=== PATIENT | female | born 1975 | race African-American/Black ===

== ENCOUNTER 2019-01-14 14:27 | Inpatient (IN) | payer OTHER ==
[2019-01-14 16:38] VITALS: BMI 26.9
--- NOTE | 2019-01-14 18:16 | HP ---
COWS - Scale Resting Pulse: 1= [place] 81-100 Sweatin=Flushed/Facial Moisture Restless Observation: 1= Difficult to Sit Still Pupil Size: 1= Pupils >than Normal Bone or Joint Aches: 1= Mild Discomfort Runny Nose/ Eye Tearin= Nasal Congestion GI Upset > 30mins: 2= Nausea/Diarrhea Tremor Observation: 2= Slight Tremor Visible Yawning Observation: 1= 1-2x During Session Anxiety or Irritability: 2=Irritable/Anxious Goose Flesh Skin: 3=Piloerection COWS Score: 17 CIWA Score Nausea/Vomitin Muscle Tremors: 3 Anxiety: 3 Agitation: 2 Paroxysmal Sweats: 2 Orientation: 0-Oriented Tacttile Disturbances: 0-None Auditory Disturbances: 0-None Visual Disturbances: 1-Very Mild Sensitivity Headache: 0-None Present CIWA-Ar Total Score: 13 - Admission Criteria OASAS Guidelines: Admission for Medically Managed Detox: Requires at least one of the followin. CIWA greater than 12 2. Seizures within the past 24 hours 3. Delirium tremens within the past 24 hours 4. Hallucinations within the past 24 hours 5. Acute intervention needed for co occurring medical disorder 6. Acute intervention needed for co occurring psychiatric disorder 7. Severe withdrawal that cannot be handled at a lower level of care (continued vomiting, continued diarrhea, abnormal vital signs) requiring intravenous medication and/or fluids 8. 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 Her last treatment was at [facility] in [place] a year ago. She has seizure disorder, she reports last seizure activity 3 years ago, she also reports frequent alcohol related black outs. Exam Limitations: No Limitations - Ebola screening Have you traveled outside of the country in the last 21 days: No (N) Have you had contact with anyone from an Ebola affected area: No Have you been sick,other than usual withdrawal symptoms: No Do you have a fever: No - Review of Systems Constitutional: Chills, Loss of Appetite, Changes in sleep, Weight Stable EENT: reports: No Symptoms Reported Respiratory: reports: No Symptoms reported Cardiac: reports: No Symptoms Reported GI: reports: Nausea, Poor Appetite : reports: No Symptoms Reported Musculoskeletal: reports: Joint Pain, Muscle Pain, Muscle Weakness Integumentary: reports: No Symptoms Reported Neuro: reports: No Symptoms reported Endocrine: reports: No Symptoms Reported Hematology: reports: No Symptoms Reported Psychiatric: reports: Anxious, other (Schizo affective disorder) Other Systems: Reviewed and Negative Patient History - Patient Medical History Hx Anemia: No Hx Asthma: No Hx Chronic Obstructive Pulmonary Disease (COPD): No Hx Cancer: No Hx Cardiac Disorders: No Hx Congestive Heart Failure: No Hx Hypertension: Yes Hx Hypercholesterolemia: No Hx Pacemaker: No HX Cerebrovascular Accident: No Hx Seizures: Yes (none x 3 years) Hx Dementia: No Hx Diabetes: No Hx Gastrointestinal Disorders: No Hx Liver Disease: No Hx Genitourinary Disorders: No Hx Sexually Transmitted Disorders: No Hx Renal Disease (ESRD): No Hx Thyroid Disease: No Hx Human Immunodeficiency Virus (HIV): No Hx Hepatitis C: No Hx Depression: No Hx Suicide Attempt: No ( ) Hx Bipolar Disorder: Yes Hx Schizophrenia: No - Patient Surgical History Past Surgical History: Yes Hx Section: Yes (x 4) Anesthesia Reaction: No - PPD History Previous Implant?: Yes Documented Results: Negative w/proof Implanted On Prior R Admission?: Yes Date: 06/04/13 PPD to be Administered?: Yes - Reproductive History Patient is a Female of Child Bearing Age (11 -55 yrs old): Yes Last Menstrual Period: 05/18/13 Patient : No - Smoking Cessation Smoking history: Current every day smoker Have you smoked in the past 12 months: Yes Aproximately how many cigarettes per day: 10 Hx Chewing Tobacco Use: No Initiated information on smoking cessation: Yes 'Breaking Loose' booklet given: 01/14/19 - Substances abused Alcohol Substance route: Oral Frequency: Daily Amount used: 7 CANS BEER Age of first use: 10 Date of last use: 01/14/19 Heroin Other (specify): SNIFF Frequency: Daily Amount used: 5 BAGS Age of first use: 13 Date of last use: 01/14/19 Cocaine Substance route: Smoking Frequency: Daily Amount used: 300$ Age of first use: 16 Date of last use: 01/14/19 Family Disease History - Family Disease History Family Disease History: Diabetes: Grandparent, Father, Mother, Heart Disease: Father Admission Physical Exam [facility] - Vital Signs Vital Signs: Vital Signs - 24 hr 01/14/19 01/14/19 16:28 17:21 Temperature 98.6 F 98.6 F Pulse Rate 97 H 97 H Respiratory 18 18 Rate Blood Pressure 198/118 H 198/118 H - Physical General Appearance: Yes: No Apparent Distress HEENTM: Yes: Hearing grossly Normal, Normocephalic, Normal Voice, LITZY, Nasal Congestion, Other (missing some teeth) Respiratory: Yes: Chest Non-Tender, Lungs Clear, Normal Breath Sounds, No Respiratory Distress, No Accessory Muscle Use Neck: Yes: No masses,lesions,Nodules, Supple Breast: Yes: Breast Exam Deferred Cardiology: Yes: Regular Rhythm, Regular Rate, S1, S2 Abdominal: Yes: Normal Bowel Sounds, Non Tender, Flat Genitourinary: Yes: Within Normal Limits Back: Yes: Normal Inspection Musculoskeletal: Yes: full range of Motion, Muscle Pain Extremities: Yes: Normal Capillary Refill, Non-Tender, Tremors Neurological: Yes: busboy II-XII NML intact, Fully Oriented, Alert, Normal Mood/ Affect, Normal Response Integumentary: Yes: Normal Color, Clammy Lymphatic: Yes: Within Normal Limits - Diagnostic (1) Uncomplicated alcohol withdrawal Current Visit: Yes Status: Acute (2) Nicotine dependence Current Visit: Yes Status: Acute Qualifiers: Nicotine product type: cigarettes Substance use status: uncomplicated Qualified Code(s): F17.210 - Nicotine dependence, cigarettes, uncomplicated (3) Essential hypertension Current Visit: Yes Status: Chronic (4) Opiate dependence Current Visit: Yes Status: Acute Qualifiers: Substance use status: uncomplicated Qualified Code(s): F11.20 - Opioid dependence, uncomplicated (5) Seizure disorder Current Visit: No Status: Chronic Cleared for Admission [facility] - Detox or Rehab [facility] Level of Care: Medically Managed Detox Regimen/Protocol: Methadone/Librium Claeared for Rehab Admission: No Breathalyzer - Breathalyzer Breathalyzer: 0 Urine Drug Screen - Test Device Lot number: [id number] Expiration date: 10/13/20 - Control Is test valid?: Yes - Results Drug screen NEGATIVE: No Urine drug screen results: THC-Marijuana, MARTHA-Cocaine, BZO-Benzodiazepines Inpatient Rehab Admission - Rehab Decision to Admit Inpatient rehab admission?: No
[2019-01-14] MEDS ORDERED: MAGNESIUM HYDROX 2400MG/30ML ORAL SUSPENSION 30 ML CUP PO PRN (18:22)
[2019-01-14] MEDS ORDERED: NALOXONE HCL 0.4 MG/ML VIAL IVPUSH PRN (18:22)
[2019-01-14] MEDS ORDERED: MENTHOL/PHENOL 1 EACH UD MM PRN (18:22)
[2019-01-14] MEDS ORDERED: QUEtiapine FUMARATE 50 MG TABLET PO PRN (18:22)
[2019-01-14] MEDS ORDERED: hydrOXYzine PAMOATE 50 MG CAPSULE (FP) PO PRN (18:22)
[2019-01-14] MEDS ORDERED: ONDANSETRON *ODT* 4 MG TABLET SL PRN (18:22)
[2019-01-14] MEDS ORDERED: BISMUTH SUBSALICYLATE 524 MG/30 ML UD PO PRN (18:22)
[2019-01-14] MEDS ORDERED: ACETAMINOPHEN 325 MG TABLET (FP) PO PRN ×2 (18:22)
[2019-01-14] MEDS ORDERED: NICOTINE POLACRILEX 2 MG GUM BUC PRN (18:22)
[2019-01-14] MEDS ORDERED: IBUPROFEN 400 MG TABLET (FP) PO PRN ×2 (18:22)
[2019-01-14] MEDS ORDERED: MAG HYDROX/AL HYDROX/SIMETH 30 ML UNIT-DOSE CUP PO PRN (18:22)
[2019-01-14] MEDS ORDERED: METHOCARBAMOL 500 MG TABLET PO PRN (18:22)
[2019-01-14] MEDS ORDERED: METHADONE HCL 10 MG TABLET (FOR DETOX USE ONLY) PO ONE ×2 (18:22→23:00)
[2019-01-14] MEDS ORDERED: P-EPHED 60MG/TRIPROLIDI 2.5MG TABLET PO PRN (18:22)
[2019-01-14] MEDS ORDERED: MAGNESIUM CITRATE 300 ML BOTTLE PO PRN (18:22)
[2019-01-14] MEDS ORDERED: chlordiazePOXIDE HCL 10 MG CAPSULE PO PRN (18:22)
[2019-01-14] MEDS ORDERED: ALBUTEROL SO4 8 GM HFA INHALER IH PRN (18:25)
[2019-01-14] MEDS: HYDROCHLOROTHIAZIDE 25 MG TABLET (FP) PO SCH (19:08)
[2019-01-14] MEDS: cloNIDine HCL 0.1 MG TABLET PO PRN (19:09)
[2019-01-14] MEDS: THIAMINE HCL 100 MG TABLET (FP) PO SCH (22:17)
[2019-01-14] MEDS: chlordiazePOXIDE HCL 25 MG CAPSULE PO SCH (22:17)
[2019-01-14] MEDS: MELATONIN 5 MG TABLETS PO PRN (22:43)
[2019-01-15] MEDS: chlordiazePOXIDE HCL 25 MG CAPSULE PO SCH ×2 (05:30→13:28)
[2019-01-15] MEDS ORDERED: METHADONE HCL 5 MG TABLET (FOR DETOX USE ONLY) PO ONE (10:00)
[2019-01-15] MEDS: PRENATAL VITAMINS W/ FOLIC ACID TABLET (FP) PO SCH (10:26)
[2019-01-15] MEDS: PHENYTOIN NA EXTENDED 100 MG CAPSULE (FP) PO SCH (10:26)
[2019-01-15] MEDS: HYDROCHLOROTHIAZIDE 25 MG TABLET (FP) PO SCH (10:26)
[2019-01-15 10:51] LABS: HEMATOCRIT 39.1 % (32.4-45.2); HEMOGLOBIN 12.9 GM/dL (10.7-15.3); MCHC 33.1 g/dl (32.0-36.0); MEAN CELL VOLUME 90.7 fl (80-96); MEAN PLT VOLUME 8.8 fl (7.5-11.1); PLATELET COUNT 291 K/MM3 (134-434); RBC 4.31 M/mm3 (3.60-5.2); WHITE BLOOD COUNT 8.2 K/mm3 (4.0-10.0)
[2019-01-15 11:12] LABS: ALBUMIN 3.8 g/dl (3.4-5.0); BILIRUBIN,TOTAL 0.4 mg/dL (0.2-1); CREATININE 0.7 mg/dL (0.55-1.3); TOT PROT 6.9 g/dl (6.4-8.2)
--- NOTE | 2019-01-15 15:40 | EKG ---
Test Reason : Blood Pressure : / mmHG Vent. Rate : 073 BPM Atrial Rate : 073 BPM P-R Int : 178 ms QRS Dur : 090 ms QT Int : 468 ms P-R-T Axes : 073 077 077 degrees QTc Int : 515 ms NORMAL SINUS RHYTHM POSSIBLE LEFT ATRIAL ENLARGEMENT PROLONGED QT ABNORMAL ECG NO PREVIOUS ECGS AVAILABLE Confirmed by BROOKS GONZALEZ MD ([id number]) on 01/15/2019 3:40:15 PM Referred By: JUMA KIM Confirmed By:BROOKS GONZALEZ MD
--- NOTE | 2019-01-15 16:24 | PN ---
[facility] CIWA - CIWA Score Nausea/Vomitin-Mild Nausea/No Vomiting Muscle Tremors: 3 Anxiety: 1-Mildly Anxious Agitation: 1-Slight > Activity Paroxysmal Sweats: 3 Orientation: 0-Oriented Tacttile Disturbances: 0-None Auditory Disturbances: 0-None Visual Disturbances: 0-None Headache: 0-None Present CIWA-Ar Total Score: 9 S COWS - Scale Resting Pulse: 0= [place] 80 or Below Sweatin=Flushed/Facial Moisture Restless Observation: 0= Sits Still Pupil Size: 0= Normal to Room Light Bone or Joint Aches: 1= Mild Discomfort Runny Nose/ Eye Tearin= None GI Upset > 30mins: 2= Nausea/Diarrhea Tremor Observation of Outstretched Hands: 2= Slight Tremor Visible Yawning Observation: 0= None Anxiety or Irritability: 1=Feels Anxious/Irritable Goose Flesh Skin: 0=Smooth Skin COWS Score: 8 [facility] Progress Note (SOAP) Subjective: SWEATS NAUSEA Objective: 01/15/19 16:21 A & OX 3 IN BED LYING, NOT IN ACUTE DISTRESS Vital Signs Temperature 98.1 F 01/15/19 14:13 Pulse Rate 73 01/15/19 14:13 Respiratory Rate 20 01/15/19 14:13 Blood Pressure 153/90 01/15/19 14:13 O2 Sat by Pulse Oximetry (%) Laboratory Last Values WBC 8.2 K/mm3 (4.0-10.0) 01/15/19 07:40 RBC 4.31 M/mm3 (3.60-5.2) 01/15/19 07:40 Hgb 12.9 GM/dL (10.7-15.3) 01/15/19 07:40 Hct 39.1 % (32.4-45.2) 01/15/19 07:40 MCV 90.7 fl (80-96) 01/15/19 07:40 MCH 30.0 pg (25.7-33.7) 01/15/19 07:40 MCHC 33.1 g/dl (32.0-36.0) 01/15/19 07:40 RDW 14.0 % (11.6-15.6) D 01/15/19 07:40 Plt Count 291 K/MM3 (134-434) 01/15/19 07:40 MPV 8.8 fl (7.5-11.1) 01/15/19 07:40 Sodium 141 mmol/L (136-145) 01/15/19 07:40 Potassium 4.0 mmol/L (3.5-5.1) 01/15/19 07:40 Chloride 106 mmol/L (98-107) 01/15/19 07:40 Carbon Dioxide 28 mmol/L (21-32) 01/15/19 07:40 Anion Gap 8 MMOL/L (8-16) 01/15/19 07:40 BUN 15 mg/dL (7-18) 01/15/19 07:40 Creatinine 0.7 mg/dL (0.55-1.3) 01/15/19 07:40 Est GFR (CKD-EPI)AfAm 121.27 01/15/19 07:40 Est GFR (CKD-EPI)NonAf 104.64 01/15/19 07:40 Random Glucose 85 mg/dL (74-106) 01/15/19 07:40 Calcium 9.0 mg/dL (8.5-10.1) 01/15/19 07:40 Total Bilirubin 0.4 mg/dL (0.2-1) 01/15/19 07:40 AST 16 U/L (15-37) 01/15/19 07:40 ALT 24 U/L (13-61) 01/15/19 07:40 Alkaline Phosphatase 106 U/L (45-117) 01/15/19 07:40 Total Protein 6.9 g/dl (6.4-8.2) 01/15/19 07:40 Albumin 3.8 g/dl (3.4-5.0) 01/15/19 07:40 POC Urine HCG, Qual Negative 01/14/19 19:35 RPR Titer Nonreactive (NONREACTIVE) 01/15/19 07:40 LABS NOTED Assessment: 01/15/19 16:23 WITHDRAWAL SX Plan: CONTINUE DETOX INCREASE HYDRATION
[2019-01-15] MEDS: cloNIDine HCL 0.1 MG TABLET PO PRN (17:14)
[2019-01-15] MEDS: clonazePAM 0.5 MG TABLET PO PRN (17:14)
[2019-01-15] MEDS: chlordiazePOXIDE 5 MG CAPSULE PO SCH (21:17)
[2019-01-15] MEDS: THIAMINE HCL 100 MG TABLET (FP) PO SCH (22:17)
[2019-01-15] MEDS: MELATONIN 5 MG TABLETS PO PRN (22:17)
[2019-01-16] MEDS: chlordiazePOXIDE 5 MG CAPSULE PO SCH ×2 (05:34→13:56)
[2019-01-16] MEDS ORDERED: METHADONE HCL 10 MG TABLET (FOR DETOX USE ONLY) PO ONE (10:00)
[2019-01-16] MEDS: PHENYTOIN NA EXTENDED 100 MG CAPSULE (FP) PO SCH (10:09)
[2019-01-16] MEDS: HYDROCHLOROTHIAZIDE 25 MG TABLET (FP) PO SCH (10:09)
[2019-01-16] MEDS: PRENATAL VITAMINS W/ FOLIC ACID TABLET (FP) PO SCH (10:10)
--- NOTE | 2019-01-16 11:43 | PN ---
[facility] CIWA - CIWA Score Nausea/Vomitin-Mild Nausea/No Vomiting Muscle Tremors: 2 Anxiety: 2 Agitation: 2 Paroxysmal Sweats: 1-Minimal Palms Moist Orientation: 0-Oriented Tacttile Disturbances: 0-None Auditory Disturbances: 0-None Visual Disturbances: 0-None Headache: 0-None Present CIWA-Ar Total Score: 8 [facility] COWS - Scale Resting Pulse: 0= [place] 80 or Below Sweatin= Chills/Flushing Restless Observation: 0= Sits Still Pupil Size: 0= Normal to Room Light Bone or Joint Aches: 1= Mild Discomfort Runny Nose/ Eye Tearin= Nasal Congestion GI Upset > 30mins: 1= Stomach Cramp Tremor Observation of Outstretched Hands: 1= Tremor [place], Not Seen Yawning Observation: 1= 1-2x During Session Anxiety or Irritability: 1=Feels Anxious/Irritable Goose Flesh Skin: 0=Smooth Skin COWS Score: 7 S Progress Note (SOAP) Subjective: long history of hypertension treated with enalapril 5 mg po daily order enalapril Objective: 01/16/19 11:56 Vital Signs Temperature 97.9 F 01/16/19 09:22 Pulse Rate 67 01/16/19 09:22 Respiratory Rate 18 01/16/19 09:22 Blood Pressure 165/97 01/16/19 09:22 O2 Sat by Pulse Oximetry (%) Laboratory Last Values WBC 8.2 K/mm3 (4.0-10.0) 01/15/19 07:40 RBC 4.31 M/mm3 (3.60-5.2) 01/15/19 07:40 Hgb 12.9 GM/dL (10.7-15.3) 01/15/19 07:40 Hct 39.1 % (32.4-45.2) 01/15/19 07:40 MCV 90.7 fl (80-96) 01/15/19 07:40 MCH 30.0 pg (25.7-33.7) 01/15/19 07:40 MCHC 33.1 g/dl (32.0-36.0) 01/15/19 07:40 RDW 14.0 % (11.6-15.6) D 01/15/19 07:40 Plt Count 291 K/MM3 (134-434) 01/15/19 07:40 MPV 8.8 fl (7.5-11.1) 01/15/19 07:40 Sodium 141 mmol/L (136-145) 01/15/19 07:40 Potassium 4.0 mmol/L (3.5-5.1) 01/15/19 07:40 Chloride 106 mmol/L (98-107) 01/15/19 07:40 Carbon Dioxide 28 mmol/L (21-32) 01/15/19 07:40 Anion Gap 8 MMOL/L (8-16) 01/15/19 07:40 BUN 15 mg/dL (7-18) 01/15/19 07:40 Creatinine 0.7 mg/dL (0.55-1.3) 01/15/19 07:40 Est GFR (CKD-EPI)AfAm 121.27 01/15/19 07:40 Est GFR (CKD-EPI)NonAf 104.64 01/15/19 07:40 Random Glucose 85 mg/dL (74-106) 01/15/19 07:40 Calcium 9.0 mg/dL (8.5-10.1) 01/15/19 07:40 Total Bilirubin 0.4 mg/dL (0.2-1) 01/15/19 07:40 AST 16 U/L (15-37) 01/15/19 07:40 ALT 24 U/L (13-61) 01/15/19 07:40 Alkaline Phosphatase 106 U/L (45-117) 01/15/19 07:40 Total Protein 6.9 g/dl (6.4-8.2) 01/15/19 07:40 Albumin 3.8 g/dl (3.4-5.0) 01/15/19 07:40 POC Urine HCG, Qual Negative 01/14/19 19:35 RPR Titer Nonreactive (NONREACTIVE) 01/15/19 07:40 lab noted Assessment: 01/16/19 11:58 alcohol and opiate withdrawal sx Plan: continue detox
[2019-01-16] MEDS ORDERED: cloNIDine HCL 0.1 MG TABLET PO PRN (12:29)
[2019-01-16] MEDS: ENALAPRIL MALEATE 5 MG TABLET (FP) PO SCH (13:56)
[2019-01-16] MEDS ORDERED: chlordiazePOXIDE HCL 10 MG CAPSULE PO PRN (21:00)
[2019-01-16] MEDS: THIAMINE HCL 100 MG TABLET (FP) PO SCH (22:19)
[2019-01-16] MEDS: clonazePAM 0.5 MG TABLET PO PRN (22:21)
[2019-01-16] MEDS: chlordiazePOXIDE HCL 10 MG CAPSULE PO SCH (22:36)
[2019-01-17] MEDS: chlordiazePOXIDE HCL 10 MG CAPSULE PO SCH ×2 (05:10→13:49)
[2019-01-17] MEDS ORDERED: METHADONE HCL 5 MG TABLET (FOR DETOX USE ONLY) PO ONE (06:00)
[2019-01-17 09:08] VITALS: TEMP 98.8
[2019-01-17] MEDS: PHENYTOIN NA EXTENDED 100 MG CAPSULE (FP) PO SCH (10:04)
[2019-01-17] MEDS: HYDROCHLOROTHIAZIDE 25 MG TABLET (FP) PO SCH (10:04)
[2019-01-17] MEDS: PRENATAL VITAMINS W/ FOLIC ACID TABLET (FP) PO SCH (10:04)
[2019-01-17] MEDS: ENALAPRIL MALEATE 5 MG TABLET (FP) PO SCH (10:04)
[2019-01-17 13:04] VITALS: BP 124/73; PULSE 78
--- NOTE | 2019-01-17 15:10 | DS ---
[facility] Detox Discharge Summary Admission Date: 01/14/19 Discharge Date: 01/17/19 - History Present History: Alcohol Dependence, Opioid Dependence Additional Comments: PATIENT GOING TO [facility] ([place]) FOR AFTERCARE. PATIENT WAS DISCHARGED FROM DETOX UNIT TO BE TAKEN OVER TO REHAB UNIT IN STABLE MEDICAL CONDITION. Pertinent Past History: Seizure Disorder, History of Blackouts (Related To Alcohol), HTN, Nicotine Dependence, History Of Bipolar Disorder. - Physical Exam Results Vital Signs: Vital Signs Temperature 98.8 F 01/17/19 13:04 Pulse Rate 78 01/17/19 13:04 Respiratory Rate 18 01/17/19 13:04 Blood Pressure 124/73 01/17/19 13:04 O2 Sat by Pulse Oximetry (%) Pertinent Admission Physical Exam Findings: WITHDRAWAL SYMPTOMS. Laboratory Tests 01/14/19 01/15/19 01/15/19 19:35 07:40 07:40 WBC 8.2 RBC 4.31 Hgb 12.9 Hct 39.1 MCV 90.7 MCH 30.0 MCHC 33.1 RDW 14.0 D Plt Count 291 MPV 8.8 Sodium 141 Potassium 4.0 Chloride 106 Carbon Dioxide 28 Anion Gap 8 BUN 15 Creatinine 0.7 Est GFR (CKD-EPI)AfAm 121.27 Est GFR (CKD-EPI)NonAf 104.64 Random Glucose 85 Calcium 9.0 Total Bilirubin 0.4 AST 16 ALT 24 Alkaline Phosphatase 106 Total Protein 6.9 Albumin 3.8 POC Urine HCG, Qual Negative Phenytoin RPR Titer 01/15/19 01/17/19 07:40 07:00 WBC RBC Hgb Hct MCV MCH MCHC RDW Plt Count MPV Sodium Potassium Chloride Carbon Dioxide Anion Gap BUN Creatinine Est GFR (CKD-EPI)AfAm Est GFR (CKD-EPI)NonAf Random Glucose Calcium Total Bilirubin AST ALT Alkaline Phosphatase Total Protein Albumin POC Urine HCG, Qual Phenytoin 4.3 L RPR Titer Nonreactive LABS NOTED. - Treatment Hospital Course: Detox Protocol Followed, Detoxed Safely, Responded well, Discharged Condition Good, Rehab Referral Accepted Patient has Accepted a Rehab Referral to: [facility] [place] - Medication Discharge Medications: Ambulatory Orders Albuterol Sulfate [Proair Hfa -] 1 - 2 inh PO QID PRN 06/02/13 Enalapril Maleate [Vasotec -] 5 mg PO DAILY 06/02/13 Hydrochlorothiazide [Hctz -] 25 mg PO DAILY 06/02/13 Phenytoin Na Extended [Dilantin -] 300 mg PO DAILY 06/02/13 Seroquel 50 mg PO HS 01/17/19 - Diagnosis (1) Nicotine dependence Status: Acute Qualifiers: Nicotine product type: cigarettes Substance use status: uncomplicated Qualified Code(s): F17.210 - Nicotine dependence, cigarettes, uncomplicated (2) Opiate dependence Status: Acute Qualifiers: Substance use status: uncomplicated Qualified Code(s): F11.20 - Opioid dependence, uncomplicated (3) Uncomplicated alcohol withdrawal Status: Acute (4) Essential hypertension Status: Chronic (5) Seizure disorder Status: Chronic - AMA Did Patient Leave Against Medical Advice: No
== END 2019-01-17 14:23 | disposition other institution (70) | DRG 773 ==
LOC: YASAS 14:27 → Y3N 18:38
PROVIDERS: ADMIT Surgery; ATTEND Surgery
PROC: HZ2ZZZZ Detoxification Services for Substance Abuse Treatment (ICD-10-PCS; principal; 2019-01-14)
DX: F10.230 Alcohol dependence with withdrawal, uncomplicated (principal); F11.23 Opioid dependence with withdrawal; F14.20 Cocaine dependence, uncomplicated; F13.20 Sedative, hypnotic or anxiolytic dependence, uncomplicated; F17.210 Nicotine dependence, cigarettes, uncomplicated; F31.9 Bipolar disorder, unspecified; I10 Essential (primary) hypertension; G40.909 Epilepsy, unspecified, not intractable, without status epilepticus; Z88.8 Allergy status to other drugs, medicaments and biological substances; Z59.0 Homelessness
CPT/HCPCS: 36415; 80053; 80185; 81025; 85027; 86593; 93005; 93010; J0735

== ENCOUNTER 2019-01-17 14:23 | Inpatient (IN) | payer OTHER ==
[2019-01-17] MEDS ORDERED: P-EPHED 60MG/TRIPROLIDI 2.5MG TABLET PO PRN (15:15)
[2019-01-17] MEDS ORDERED: MAGNESIUM CITRATE 300 ML BOTTLE PO PRN (15:15)
[2019-01-17] MEDS ORDERED: NICOTINE POLACRILEX 2 MG GUM BUC PRN (15:15)
[2019-01-17] MEDS ORDERED: MAG HYDROX/AL HYDROX/SIMETH 30 ML UNIT-DOSE CUP PO PRN (15:15)
[2019-01-17] MEDS ORDERED: LOPERAMIDE HCL 2 MG CAPSULE PO PRN (15:15)
[2019-01-17] MEDS ORDERED: guaiFENesin 200 MG/10 ML 10 ML UNIT-DOSE CUPS PO PRN (15:15)
[2019-01-17] MEDS ORDERED: MAGNESIUM HYDROX 2400MG/30ML ORAL SUSPENSION 30 ML CUP PO PRN (15:15)
[2019-01-17] MEDS ORDERED: MENTHOL/PHENOL 1 EACH UD MM PRN (15:15)
[2019-01-17] MEDS ORDERED: ALBUTEROL SO4 8 GM HFA INHALER IH PRN (15:18)
--- NOTE | 2019-01-17 15:19 | HP ---
[facility] Rehab Assess/Revision - Admission History Admitted to Rehab from: [facility] Date of Admission to Rehab: 01/17/2019 - Vital signs Vital Signs: Vital Signs Period Temp Pulse Resp BP Sys/Woodruff Pulse Ox Last 24 Hr 97.1 F 73 18 158/97 - Findings Detox History & Physical reviewed: Yes Concur with findings: Yes Comments/Additional Findings: PATIENT'S MEDICAL / MEDICATION HISTORY REVIEWED PRIOR TO DISCHARGE FROM DETOX UNIT. PATIENT WAS DISCHARGED FROM DETOX UNIT TO BE TAKEN OVER TO REHAB UNIT IN STABLE MEDICAL CONDITION. Inpatient Rehab Admission - Rehab Decision to Admit Inpatient rehab admission?: Yes - Initial Determination Are CD services needed?: Yes Free of communicable disease: Yes Not in need of hospitalization: Yes - Rehab Admission Criteria Previous failed treatment: Yes Poor recovery environment: Yes Comorbidities: Yes Lacks judgement: No Patient is meeting Inpatient Rehab admission criteria:: Yes
[2019-01-17] MEDS ORDERED: hydrOXYzine PAMOATE 25 MG CAPSULE (FP) PO PRN (15:25)
--- NOTE | 2019-01-17 15:28 | PN ---
[facility] Progress Note Note: patient reports she is on clonidine 0.3 twice a day. Checked outside prescriptions and do not find any prescriptions for clonidine. Although BP is elevated, her enalapril is at 5mg/day and the HCTZ is 25 mg/day, so there is room to increase these medication if needed to control BP without adding clonidine for BP control at this time. Will continue to monitor. Vital Signs (72 hours) 01/17/19 14:45 Temperature 97.1 F L Pulse Rate 73 Respiratory 18 Rate Blood Pressure 158/97
[2019-01-17] MEDS: THIAMINE HCL 100 MG TABLET (FP) PO SCH (21:30)
[2019-01-17] MEDS: MELATONIN 5 MG TABLETS PO PRN (21:30)
[2019-01-18] MEDS ORDERED: PT OWN MED DRAWER 7, Y5N ONE ×2 (08:41→15:47)
[2019-01-18] MEDS: HYDROCHLOROTHIAZIDE 25 MG TABLET (FP) PO SCH (09:12)
[2019-01-18] MEDS: PRENATAL VITAMINS W/ FOLIC ACID TABLET (FP) PO SCH (09:12)
[2019-01-18] MEDS: PHENYTOIN NA EXTENDED 100 MG CAPSULE (FP) PO SCH (09:12)
[2019-01-18] MEDS: ACETAMINOPHEN 325 MG TABLET (FP) PO PRN (09:19)
[2019-01-18] MEDS ORDERED: ENALAPRIL MALEATE 5 MG TABLET (FP) PO SCH (10:00)
--- NOTE | 2019-01-18 13:30 | PN ---
[facility] Progress Note Note: BP is elevated; SBP in the 90s. Patient is asymptomatic. Vasotec was increased from 5mg to 10 mg. Will continue to monitor. Vital Signs (72 hours) 01/17/19 01/18/19 01/18/19 14:45 00:30 03:30 Temperature 97.1 F L Pulse Rate 73 Respiratory 18 16 16 Rate Blood Pressure 158/97 01/18/19 01/18/19 07:01 09:08 Temperature 97.9 F 97.7 F Pulse Rate 88 88 Respiratory 18 18 Rate Blood Pressure 129/94 143/96
--- NOTE | 2019-01-18 14:31 | PN ---
[facility] COWS - Scale Resting Pulse: 1= IN 81-100 Sweatin= Beads of Sweat on Face Restless Observation: 3= Extraneous Movement Pupil Size: 0= Normal to Room Light Bone or Joint Aches: 2= Severe Diffuse Aches Runny Nose/ Eye Tearin= Constantly Teary/Runny GI Upset > 30mins: 5=Frequent Vomit/Diarrhea Tremor Observation of Outstretched Hands: 1= Tremor [place], Not Seen Yawning Observation: 1= 1-2x During Session Anxiety or Irritability: 1=Feels Anxious/Irritable Goose Flesh Skin: 0=Smooth Skin COWS Score: 21 [facility] Progress Note (SOAP) Subjective: Patient requesting to start on suboxone. Feeling symptoms of withdrawal. States that she has not been on suboxone as treatment, but has bought it in the street. Last use of substances was 01/13, prior to admission. Objective: Urine drug screen positive for marijuana, cocaine,methadone, benzos, and barbiturates. COWS score is 21. 01/18/19 15:02 Vital Signs (72 hours) 01/17/19 01/18/19 01/18/19 14:45 00:30 03:30 Temperature 97.1 F L Pulse Rate 73 Respiratory 18 16 16 Rate Blood Pressure 158/97 01/18/19 01/18/19 01/18/19 07:01 09:08 14:26 Temperature 97.9 F 97.7 F 97.7 F Pulse Rate 88 88 84 Respiratory 18 18 18 Rate Blood Pressure 129/94 143/96 159/93 Assessment: Withdrawal Syndrome. 01/18/19 15:03 Plan: Will start patient on suboxone. Discussed effects of suboxone with the patient.
--- NOTE | 2019-01-18 14:35 | CONSULT ---
[facility] Psychiatric Consult - Data Date of interview: 01/18/19 Admission source: [facility] Identifying data: Direct admission to [address] for this 43 y/o AA female self-referred for rehabilitative care to address opioid/cannabis/ benzodiazepine/cocaine dependence co-morbid with schizoaffective disorder. This is her second visit to [facility]. Patient is , a mother of four, homeless ( intermediate resident), unemployed and supported on SSI benefits. Substance Abuse History: Discussed in this session. [facility] report is validated by the patient as an accurate description of her substance abuse profile : Smoking history: Current every day smoker. Have you smoked in the past 12 months: Yes. Aproximately how many cigarettes per day: 10. Hx Chewing Tobacco Use: No. Initiated information on smoking cessation: Yes. 'Breaking Loose' booklet given : 01/14/19. - Substances abused. Alcohol. Substance route: Oral. Frequency: Daily. Amount used: 7 CANS BEER. Age of first use: 10. Date of last use: 01/14/19. Heroin. Other (specify): SNIFF. Frequency: Daily. Amount used: 5 BAGS. Age of first use: 13. Date of last use: 01/14/19. Cocaine. Substance route: Smoking. Frequency: Daily. Amount used: 300$. Age of first use: 16. Date of last use: 01/14/19 Medical History: Significant for hypertension, seizure disorder and a history of four sections. Psychiatric History: Patient endorses a history of three psychiatric hospitalizations at [facility]. Diagnosed with Schizoaffective Disorder. Ms Cornejo reports maintenance on halodol decanoate 150 mg IM monthly (last injection was dispensed on 12/27/18 as per self-report). Additional medications consists of cogentin 1 mg/bid + seroquel 50 mg/hs. Psychiatric OPD services are rendered at the [facility] mental health clinic. Patient denies history of suicide attempts. Physical/Sexual Abuse/Trauma History: Patient denies. Additional Comment: Urine drug screen results: THC-Marijuana, MARTHA-Cocaine, BZO- Benzodiazepines. Noted. Mental Status Exam - Mental Status Exam Alert and Oriented to: Time, Place, Person Cognitive Function: Good Patient Appearance: Well Groomed Mood: Hopeful, Euthymic Affect: Appropriate, Normal Range Patient Behavior: Appropriate, Cooperative Speech Pattern: Clear (good historian), Appropriate Voice Loudness: Normal Thought Process: Intact, Goal Oriented Thought Disorder: Not Present Hallucinations: Denies Suicidal Ideation: Denies Homicidal Ideation: Denies Sleep: Poorly, Difficulty falling asleep Appetite: Good Muscle strength/Tone: Normal Gait/Station: Normal Psychiatric Findings - Problem List (Sheldon 1, 2,3) (1) Schizoaffective disorder Current Visit: Yes Status: Chronic (2) Opiate dependence Current Visit: Yes Status: Chronic Qualifiers: Substance use status: uncomplicated Qualified Code(s): F11.20 - Opioid dependence, uncomplicated (3) Alcohol dependence Current Visit: Yes Status: Active (4) Cannabis dependence Current Visit: Yes Status: Active (5) Cocaine dependence Current Visit: Yes Status: Active (6) Nicotine dependence Current Visit: Yes Status: Acute Qualifiers: Nicotine product type: cigarettes Substance use status: uncomplicated Qualified Code(s): F17.210 - Nicotine dependence, cigarettes, uncomplicated (7) Insomnia Current Visit: Yes Status: Chronic - Initial Treatment Plan Initial Treatment Plan: Psychoeducation. Support. Sleep hygiene. AA/NA meetings. Motivational counseling. Groups. Sessions revisiting initiatives for relapse prevention (MAT). Medications resumed as cogentin 1 mg po bid + seroquel 50 mg po hs. Side effecst/benefits of both drugs are discussed with patient. Informed consent (verbal) addressed to MD. Sousa.
[2019-01-18] MEDS: BUPRENORPHINE/NALOXONE 2 MG/0.5 MG FILM PACKET SL SCH (17:03)
[2019-01-18] MEDS: THIAMINE HCL 100 MG TABLET (FP) PO SCH (21:36)
[2019-01-18] MEDS: QUEtiapine FUMARATE 50 MG TABLET PO SCH (21:36)
[2019-01-18] MEDS: BENZTROPINE MESYLATE 1 MG TABLET (FP) PO SCH (21:36)
[2019-01-19] MEDS ORDERED: PT OWN MED DRAWER 7, Y5N ONE (08:38)
[2019-01-19] MEDS: BUPRENORPHINE/NALOXONE 2 MG/0.5 MG FILM PACKET SL SCH (09:59)
[2019-01-19] MEDS: PRENATAL VITAMINS W/ FOLIC ACID TABLET (FP) PO SCH (09:59)
[2019-01-19] MEDS: PHENYTOIN NA EXTENDED 100 MG CAPSULE (FP) PO SCH (10:00)
[2019-01-19] MEDS: BENZTROPINE MESYLATE 1 MG TABLET (FP) PO SCH ×2 (10:00→21:27)
[2019-01-19] MEDS: ENALAPRIL MALEATE 10 MG TABLET (FP) PO SCH (10:00)
[2019-01-19] MEDS: HYDROCHLOROTHIAZIDE 25 MG TABLET (FP) PO SCH (10:00)
[2019-01-19] MEDS: THIAMINE HCL 100 MG TABLET (FP) PO SCH (21:26)
[2019-01-19] MEDS: QUEtiapine FUMARATE 50 MG TABLET PO SCH (21:27)
[2019-01-20] MEDS ORDERED: PT OWN MED DRAWER 7, Y5N ONE (08:44)
[2019-01-20] MEDS: PRENATAL VITAMINS W/ FOLIC ACID TABLET (FP) PO SCH (09:48)
[2019-01-20] MEDS: HYDROCHLOROTHIAZIDE 25 MG TABLET (FP) PO SCH (09:48)
[2019-01-20] MEDS: PHENYTOIN NA EXTENDED 100 MG CAPSULE (FP) PO SCH (09:48)
[2019-01-20] MEDS: BENZTROPINE MESYLATE 1 MG TABLET (FP) PO SCH ×2 (09:48→21:04)
[2019-01-20] MEDS: BUPRENORPHINE/NALOXONE 2 MG/0.5 MG FILM PACKET SL SCH (09:48)
[2019-01-20] MEDS: ENALAPRIL MALEATE 10 MG TABLET (FP) PO SCH (09:50)
[2019-01-20] MEDS ORDERED: INSULIN (NOVOLOG) ASPART 100 UNITS/ML 10ML VIAL ONE (16:34)
[2019-01-20] MEDS: ACETAMINOPHEN 325 MG TABLET (FP) PO PRN (16:47)
[2019-01-20] MEDS: MELATONIN 5 MG TABLETS PO PRN (21:04)
[2019-01-20] MEDS: THIAMINE HCL 100 MG TABLET (FP) PO SCH (21:04)
[2019-01-20] MEDS: QUEtiapine FUMARATE 50 MG TABLET PO SCH (21:04)
[2019-01-21] MEDS ORDERED: PT OWN MED DRAWER 7, Y5N ONE ×2 (08:50→08:51)
[2019-01-21] MEDS: PRENATAL VITAMINS W/ FOLIC ACID TABLET (FP) PO SCH (09:52)
[2019-01-21] MEDS: HYDROCHLOROTHIAZIDE 25 MG TABLET (FP) PO SCH (09:53)
[2019-01-21] MEDS: BENZTROPINE MESYLATE 1 MG TABLET (FP) PO SCH ×2 (09:53→21:15)
[2019-01-21] MEDS: PHENYTOIN NA EXTENDED 100 MG CAPSULE (FP) PO SCH (09:53)
[2019-01-21] MEDS: ENALAPRIL MALEATE 10 MG TABLET (FP) PO SCH (09:53)
[2019-01-21] MEDS: BUPRENORPHINE/NALOXONE 2 MG/0.5 MG FILM PACKET SL SCH (09:55)
[2019-01-21] MEDS: THIAMINE HCL 100 MG TABLET (FP) PO SCH (21:15)
[2019-01-21] MEDS: QUEtiapine FUMARATE 50 MG TABLET PO SCH (21:15)
[2019-01-22] MEDS ORDERED: PT OWN MED DRAWER 7, Y5N ONE (08:46)
[2019-01-22] MEDS: PRENATAL VITAMINS W/ FOLIC ACID TABLET (FP) PO SCH (10:10)
[2019-01-22] MEDS: HYDROCHLOROTHIAZIDE 25 MG TABLET (FP) PO SCH (10:10)
[2019-01-22] MEDS: BENZTROPINE MESYLATE 1 MG TABLET (FP) PO SCH ×2 (10:10→21:13)
[2019-01-22] MEDS: ENALAPRIL MALEATE 10 MG TABLET (FP) PO SCH (10:10)
[2019-01-22] MEDS: PHENYTOIN NA EXTENDED 100 MG CAPSULE (FP) PO SCH (10:10)
[2019-01-22] MEDS: BUPRENORPHINE/NALOXONE 2 MG/0.5 MG FILM PACKET SL SCH (10:12)
[2019-01-22] MEDS: QUEtiapine FUMARATE 50 MG TABLET PO SCH (21:13)
[2019-01-22] MEDS: THIAMINE HCL 100 MG TABLET (FP) PO SCH (21:13)
[2019-01-22] MEDS: MELATONIN 5 MG TABLETS PO PRN (21:13)
[2019-01-23] MEDS: PHENYTOIN NA EXTENDED 100 MG CAPSULE (FP) PO SCH (09:21)
[2019-01-23] MEDS: BENZTROPINE MESYLATE 1 MG TABLET (FP) PO SCH ×2 (09:21→21:05)
[2019-01-23] MEDS: BUPRENORPHINE/NALOXONE 2 MG/0.5 MG FILM PACKET SL SCH (09:22)
[2019-01-23] MEDS: ENALAPRIL MALEATE 10 MG TABLET (FP) PO SCH (09:22)
[2019-01-23] MEDS: PRENATAL VITAMINS W/ FOLIC ACID TABLET (FP) PO SCH (09:22)
[2019-01-23] MEDS: HYDROCHLOROTHIAZIDE 25 MG TABLET (FP) PO SCH (09:22)
--- NOTE | 2019-01-23 10:30 | PN ---
S Progress Note Note: patient is still experiencing withdrawal symptoms of eyes tearing and diarrhea. suboxone increased to 4mg/day.
--- NOTE | 2019-01-23 16:28 | PN ---
S Progress Note Note: Psychiatry Attending's note (follow-up) : Case revisited. [facility] contacted patient's preferred pharmacy. At [phone]. For verification of haldol decanoate's dose. In addition to information about date of last IM injection. Verbal consent already given to (interview of 01/18/19). Most recent refills for haldol and cogentin were on 06/11/18. No haloperidol decanoate refill on file.
[2019-01-23] MEDS: THIAMINE HCL 100 MG TABLET (FP) PO SCH (21:05)
[2019-01-23] MEDS: QUEtiapine FUMARATE 50 MG TABLET PO SCH (21:05)
[2019-01-23] MEDS ORDERED: BUPRENORPHINE/NALOXONE 2 MG/0.5 MG FILM PACKET SL ONE (22:00)
[2019-01-24] MEDS ORDERED: PT OWN MED DRAWER 7, Y5N ONE (08:24)
[2019-01-24] MEDS: ENALAPRIL MALEATE 10 MG TABLET (FP) PO SCH (10:02)
[2019-01-24] MEDS: BENZTROPINE MESYLATE 1 MG TABLET (FP) PO SCH ×2 (10:02→21:04)
[2019-01-24] MEDS: PRENATAL VITAMINS W/ FOLIC ACID TABLET (FP) PO SCH (10:02)
[2019-01-24] MEDS: PHENYTOIN NA EXTENDED 100 MG CAPSULE (FP) PO SCH (10:02)
[2019-01-24] MEDS: HYDROCHLOROTHIAZIDE 25 MG TABLET (FP) PO SCH (10:02)
[2019-01-24] MEDS: BUPRENORPHINE/NALOXONE 2 MG/0.5 MG FILM PACKET SL SCH (10:03)
[2019-01-24] MEDS: QUEtiapine FUMARATE 50 MG TABLET PO SCH (21:04)
[2019-01-24] MEDS: MELATONIN 5 MG TABLETS PO PRN (21:04)
[2019-01-24] MEDS: THIAMINE HCL 100 MG TABLET (FP) PO SCH (21:04)
[2019-01-25] MEDS: PHENYTOIN NA EXTENDED 100 MG CAPSULE (FP) PO SCH (09:36)
[2019-01-25] MEDS: ENALAPRIL MALEATE 10 MG TABLET (FP) PO SCH (09:36)
[2019-01-25] MEDS: BENZTROPINE MESYLATE 1 MG TABLET (FP) PO SCH ×2 (09:36→21:09)
[2019-01-25] MEDS: HYDROCHLOROTHIAZIDE 25 MG TABLET (FP) PO SCH (09:37)
[2019-01-25] MEDS: PRENATAL VITAMINS W/ FOLIC ACID TABLET (FP) PO SCH (09:37)
[2019-01-25] MEDS: BUPRENORPHINE/NALOXONE 2 MG/0.5 MG FILM PACKET SL SCH (09:38)
[2019-01-25] MEDS ORDERED: PT OWN MED DRAWER 7, Y5N ONE ×2 (10:21→14:32)
[2019-01-25] MEDS: ACETAMINOPHEN 325 MG TABLET (FP) PO PRN (19:00)
[2019-01-25] MEDS: QUEtiapine FUMARATE 50 MG TABLET PO SCH (21:09)
[2019-01-25] MEDS: MELATONIN 5 MG TABLETS PO PRN (21:09)
[2019-01-25] MEDS: THIAMINE HCL 100 MG TABLET (FP) PO SCH (21:10)
[2019-01-26] MEDS: HYDROCHLOROTHIAZIDE 25 MG TABLET (FP) PO SCH (09:26)
[2019-01-26] MEDS: PRENATAL VITAMINS W/ FOLIC ACID TABLET (FP) PO SCH (09:26)
[2019-01-26] MEDS: BUPRENORPHINE/NALOXONE 2 MG/0.5 MG FILM PACKET SL SCH (09:26)
[2019-01-26] MEDS: ENALAPRIL MALEATE 10 MG TABLET (FP) PO SCH (09:26)
[2019-01-26] MEDS: BENZTROPINE MESYLATE 1 MG TABLET (FP) PO SCH ×2 (09:26→21:19)
[2019-01-26] MEDS: PHENYTOIN NA EXTENDED 100 MG CAPSULE (FP) PO SCH (09:27)
--- NOTE | 2019-01-26 11:56 | PN ---
S Progress Note Note: Patient experiencing cough with lisinopril. PLAN: Lisinopril discontinued and amlodipine started. Will continue to monitor.
[2019-01-26] MEDS: ACETAMINOPHEN 325 MG TABLET (FP) PO PRN (18:59)
[2019-01-26] MEDS: THIAMINE HCL 100 MG TABLET (FP) PO SCH (21:19)
[2019-01-26] MEDS: MELATONIN 5 MG TABLETS PO PRN (21:19)
[2019-01-26] MEDS: QUEtiapine FUMARATE 50 MG TABLET PO SCH (21:19)
[2019-01-27] MEDS: PRENATAL VITAMINS W/ FOLIC ACID TABLET (FP) PO SCH (10:13)
[2019-01-27] MEDS: PHENYTOIN NA EXTENDED 100 MG CAPSULE (FP) PO SCH (10:13)
[2019-01-27] MEDS: BENZTROPINE MESYLATE 1 MG TABLET (FP) PO SCH ×2 (10:13→21:10)
[2019-01-27] MEDS: HYDROCHLOROTHIAZIDE 25 MG TABLET (FP) PO SCH (10:14)
[2019-01-27] MEDS: amLODIPine BESYLATE 5 MG TABLET (FP) PO SCH (10:15)
[2019-01-27] MEDS: BUPRENORPHINE/NALOXONE 2 MG/0.5 MG FILM PACKET SL SCH (10:16)
[2019-01-27] MEDS ORDERED: BUPRENORPHINE/NALOXONE 2 MG/0.5 MG FILM PACKET SL ONE (15:33)
--- NOTE | 2019-01-27 15:38 | PN ---
S Progress Note Note: PT REFUSED HER DOSE OF SUBOXONE THIS MORNING BUT NOW WANTS IT STATING "I DON;T FEEL GOOD NOW, I WANT IT BADLY NOW. MY STOMACH CRAMPING". Vital Signs - 24 hr 01/27/19 01/27/19 01/27/19 00:30 03:30 07:15 Temperature 97.9 F Pulse Rate 84 Respiratory 17 18 18 Rate Blood Pressure 139/98 01/27/19 09:20 Temperature Pulse Rate 98 H Respiratory 18 Rate Blood Pressure 148/84 PLAN:SUBOXONE 4MG SL X 1 DOSE NOW.
[2019-01-27] MEDS: ACETAMINOPHEN 325 MG TABLET (FP) PO PRN (19:11)
[2019-01-27] MEDS: THIAMINE HCL 100 MG TABLET (FP) PO SCH (21:09)
[2019-01-27] MEDS: MELATONIN 5 MG TABLETS PO PRN (21:10)
[2019-01-27] MEDS: QUEtiapine FUMARATE 50 MG TABLET PO SCH (21:10)
[2019-01-28] MEDS: amLODIPine BESYLATE 5 MG TABLET (FP) PO SCH (09:39)
[2019-01-28] MEDS: BENZTROPINE MESYLATE 1 MG TABLET (FP) PO SCH ×2 (09:39→20:59)
[2019-01-28] MEDS: BUPRENORPHINE/NALOXONE 2 MG/0.5 MG FILM PACKET SL SCH (09:39)
[2019-01-28] MEDS: PHENYTOIN NA EXTENDED 100 MG CAPSULE (FP) PO SCH (09:39)
[2019-01-28] MEDS: HYDROCHLOROTHIAZIDE 25 MG TABLET (FP) PO SCH (09:40)
[2019-01-28] MEDS: PRENATAL VITAMINS W/ FOLIC ACID TABLET (FP) PO SCH (09:40)
[2019-01-28] MEDS: QUEtiapine FUMARATE 50 MG TABLET PO SCH (20:59)
[2019-01-28] MEDS: THIAMINE HCL 100 MG TABLET (FP) PO SCH (20:59)
[2019-01-28] MEDS: MELATONIN 5 MG TABLETS PO PRN (21:01)
[2019-01-29] MEDS: amLODIPine BESYLATE 5 MG TABLET (FP) PO SCH (09:20)
[2019-01-29] MEDS: BENZTROPINE MESYLATE 1 MG TABLET (FP) PO SCH ×2 (09:20→21:12)
[2019-01-29] MEDS: HYDROCHLOROTHIAZIDE 25 MG TABLET (FP) PO SCH (09:20)
[2019-01-29] MEDS: PHENYTOIN NA EXTENDED 100 MG CAPSULE (FP) PO SCH (09:20)
[2019-01-29] MEDS: PRENATAL VITAMINS W/ FOLIC ACID TABLET (FP) PO SCH (09:20)
[2019-01-29] MEDS: BUPRENORPHINE/NALOXONE 2 MG/0.5 MG FILM PACKET SL SCH (09:22)
[2019-01-29] MEDS ORDERED: PT OWN MED DRAWER 7, Y5N ONE (09:59)
[2019-01-29] MEDS: THIAMINE HCL 100 MG TABLET (FP) PO SCH (21:12)
[2019-01-29] MEDS: QUEtiapine FUMARATE 50 MG TABLET PO SCH (21:12)
[2019-01-30 07:04] VITALS: TEMP 98.2
[2019-01-30] MEDS: PHENYTOIN NA EXTENDED 100 MG CAPSULE (FP) PO SCH (09:48)
[2019-01-30] MEDS: BENZTROPINE MESYLATE 1 MG TABLET (FP) PO SCH ×2 (09:48→21:17)
[2019-01-30] MEDS: PRENATAL VITAMINS W/ FOLIC ACID TABLET (FP) PO SCH (09:48)
[2019-01-30] MEDS: HYDROCHLOROTHIAZIDE 25 MG TABLET (FP) PO SCH (09:48)
[2019-01-30] MEDS: amLODIPine BESYLATE 5 MG TABLET (FP) PO SCH (09:49)
[2019-01-30] MEDS: BUPRENORPHINE/NALOXONE 2 MG/0.5 MG FILM PACKET SL SCH (09:52)
[2019-01-30] MEDS: MELATONIN 5 MG TABLETS PO PRN (21:17)
[2019-01-30] MEDS: THIAMINE HCL 100 MG TABLET (FP) PO SCH (21:17)
[2019-01-30] MEDS: QUEtiapine FUMARATE 50 MG TABLET PO SCH (21:17)
[2019-01-31] MEDS ORDERED: COLLOIDAL OATMEAL 1 BAR EACH TP PRN (09:06)
[2019-01-31] MEDS: PHENYTOIN NA EXTENDED 100 MG CAPSULE (FP) PO SCH (10:03)
[2019-01-31] MEDS: BENZTROPINE MESYLATE 1 MG TABLET (FP) PO SCH ×2 (10:03→21:23)
[2019-01-31] MEDS: HYDROCHLOROTHIAZIDE 25 MG TABLET (FP) PO SCH (10:03)
[2019-01-31] MEDS: PRENATAL VITAMINS W/ FOLIC ACID TABLET (FP) PO SCH (10:03)
[2019-01-31] MEDS: amLODIPine BESYLATE 5 MG TABLET (FP) PO SCH (10:03)
[2019-01-31] MEDS: BUPRENORPHINE/NALOXONE 2 MG/0.5 MG FILM PACKET SL SCH (11:04)
--- NOTE | 2019-01-31 11:09 | PN ---
[facility] Progress Note (SOAP) Subjective: Patient to be discharged tomorrow. paitient now states that she does not want to continue suboxone. Objective: A+O x3, no neurological deficits. Heart sounds regular, lungs clear, abd soft, non-tender, non-distended, +BS> 01/31/19 11:08 Laboratory Last Values HIV 1&2 Antibody Screen Negative 01/18/19 06:00 HIV P24 Antigen Negative 01/18/19 06:00 Vital Signs (72 hours) 01/29/19 01/29/19 01/29/19 00:30 03:30 07:14 Temperature 98.0 F Pulse Rate 82 Respiratory 18 18 16 Rate Blood Pressure 107/74 01/29/19 01/30/19 01/30/19 09:00 00:30 03:30 Temperature Pulse Rate 96 H Respiratory 16 18 18 Rate Blood Pressure 146/87 01/30/19 01/30/19 01/31/19 07:04 10:00 00:30 Temperature 98.2 F Pulse Rate 86 90 Respiratory 18 17 Rate Blood Pressure 128/89 119/78 01/31/19 01/31/19 01/31/19 03:30 07:11 10:00 Temperature Pulse Rate 90 Respiratory 18 18 Rate Blood Pressure 124/86 Assessment: Medically stable for discharge Discharge Dx: ETOH dependence Cocaine dependence Cannabis dependence Opioid Dependence Seizure Disorder. HTN Asthma 01/31/19 11:09 01/31/19 11:12 Plan: Patient will not continue suboxone upon discharge. She is going to [facility] for aftercare and [facility] for medical care. Prescriptions for BP medication and inhaler transmitted to patient's pharmacy.
[2019-01-31] MEDS: THIAMINE HCL 100 MG TABLET (FP) PO SCH (21:23)
[2019-01-31] MEDS: QUEtiapine FUMARATE 50 MG TABLET PO SCH (21:23)
[2019-01-31] MEDS: MELATONIN 5 MG TABLETS PO PRN (21:23)
--- NOTE | 2019-02-01 07:02 | PN ---
[facility] Progress Note Note: Patient is scheduled for discharge today. Scripts for 30 days supply of medications(Cogentin 1 mg/bid, Seroquel 50 mg/hs) are electronically transmitted to [facility] at [address] [place], [place] [id number]
[2019-02-01] MEDS: HYDROCHLOROTHIAZIDE 25 MG TABLET (FP) PO SCH (09:04)
[2019-02-01] MEDS: PRENATAL VITAMINS W/ FOLIC ACID TABLET (FP) PO SCH (09:04)
[2019-02-01] MEDS: PHENYTOIN NA EXTENDED 100 MG CAPSULE (FP) PO SCH (09:04)
[2019-02-01] MEDS: BENZTROPINE MESYLATE 1 MG TABLET (FP) PO SCH (09:04)
[2019-02-01] MEDS: amLODIPine BESYLATE 5 MG TABLET (FP) PO SCH (09:04)
[2019-02-01 09:07] VITALS: BP 142/85; PULSE 92
[2019-02-01] MEDS: BUPRENORPHINE/NALOXONE 2 MG/0.5 MG FILM PACKET SL SCH (09:15)
== END 2019-02-01 09:18 | disposition home or self-care (01) | DRG 772 ==
LOC: YASAS 14:23 → Y3E 14:24
PROVIDERS: ADMIT Neuromusculoskeletal Medicine & OMM; ATTEND Neuromusculoskeletal Medicine & OMM
PROC: HZ42ZZZ Group Counseling for Substance Abuse Treatment, Cognitive-Behavioral (ICD-10-PCS; principal; 2019-01-17)
DX: F11.23 Opioid dependence with withdrawal (principal); F10.230 Alcohol dependence with withdrawal, uncomplicated; F14.20 Cocaine dependence, uncomplicated; F12.20 Cannabis dependence, uncomplicated; F17.210 Nicotine dependence, cigarettes, uncomplicated; F25.9 Schizoaffective disorder, unspecified; I10 Essential (primary) hypertension; G40.909 Epilepsy, unspecified, not intractable, without status epilepticus; J45.909 Unspecified asthma, uncomplicated; G47.00 Insomnia, unspecified; Z59.0 Homelessness
CPT/HCPCS: 36415; 87389

== ENCOUNTER 2019-09-26 13:07 | Inpatient (IN) | payer OTHER ==
[2019-09-26 15:45] VITALS: BMI 29.9
--- NOTE | 2019-09-26 16:50 | HP ---
<Artemio Parsons - Last Filed: 09/26/19 16:37> COWS - Scale Resting Pulse: 2= [place] 101-120 Sweatin= Chills/Flushing Restless Observation: 3= Extraneous Movement Pupil Size: 1= Pupils >than Normal Bone or Joint Aches: 1= Mild Discomfort Runny Nose/ Eye Tearin= Runny Nose/Eyes GI Upset > 30mins: 2= Nausea/Diarrhea Tremor Observation: 2= Slight Tremor Visible Yawning Observation: 1= 1-2x During Session Anxiety or Irritability: 1=Feels Anxious/Irritable Goose Flesh Skin: 3=Piloerection COWS Score: 19 CIWA Score Nausea/Vomitin Muscle Tremors: 4-Moderate,w/Arms Extend Anxiety: 3 Agitation: 4-Moderately Restless Paroxysmal Sweats: 3 Orientation: 0-Oriented Tacttile Disturbances: 0-None Auditory Disturbances: 0-None Visual Disturbances: 3-Moderate Sensitivity Headache: 3-Moderate CIWA-Ar Total Score: 25 - Admission Criteria OASAS Guidelines: Admission for Medically Managed Detox: Requires at least one of the followin. CIWA greater than 12 2. Seizures within the past 24 hours 3. Delirium tremens within the past 24 hours 4. Hallucinations within the past 24 hours 5. Acute intervention needed for co occurring medical disorder 6. Acute intervention needed for co occurring psychiatric disorder 7. Severe withdrawal that cannot be handled at a lower level of care (continued vomiting, continued diarrhea, abnormal vital signs) requiring intravenous medication and/or fluids 8. Patient presents the following: CIWA greater than 12 Admission Criteria Met: Admission criteria met Admitting History and Physical - Admission History of Present Illness: PCP: Dr. Pandya last visit last month Comes seeking detox for multiple substances. EtOH: First - 10 years old, Last - last night, 5 X 22oz beer & 1/2 gallon vodka. Has withdrawn. Has had seizures but does not believe she's had any related to alcohol withdrawal. Has blacked out. When not drinking, gets nausea, vomiting, diarrhea. 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 Crack Cocaine: first - age 16, Last - last night, smokes, never injected, $200/ day Heroin: First - 16, last - 2 days ago, 1 bundle daily, sniffs it. Never injected Xanax: First - 1 year ago. Last - last night. buys on the street. $10/pill. 5 pills daily. Marijuana: First - 10 years old, last - 3 days ago, smokes daily, $20 daily Tobacco: 10 cig/day since age 10. Presently has runny nose and eyes, joint pain, tooth ache, nauseated, mild diarrhea, headache, chills, cough. 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 Uses condoms intermittently. Last HIV test was neg in Jul. Requests repeat. Last PPD in January at this facility. - Past Medical History ...LMP: 05/18/13 ...: No - Smoking History Smoking history: Current every day smoker Have you smoked in the past 12 months: Yes Aproximately how many cigarettes per day: 10 - Alcohol/Substance Use Hx Alcohol Use: Yes Admission [facility] Allergies/Adverse Reactions: Allergies Allergy/AdvReac Type Severity Reaction Status Date / Time Milk Containing Products Allergy Severe Difficulty Verified 09/26/19 15:24 Breathing tomato [Tomato] Allergy Severe Difficulty Verified 09/26/19 15:25 Breathing No Known Drug Allergies Allergy Verified 09/26/19 15:25 TURKEY Allergy Severe Difficulty Uncoded 09/26/19 15:25 Breathing Patient History - Patient Medical History Hx Anemia: No Hx Asthma: No Hx Chronic Obstructive Pulmonary Disease (COPD): No Hx Cancer: No Hx Cardiac Disorders: No Hx Congestive Heart Failure: No Hx Hypertension: Yes (Dx with HTN in 2005) Hx Hypercholesterolemia: No Hx Pacemaker: No HX Cerebrovascular Accident: No Hx Seizures: Yes (Seizures since 8 years old, Last seizure 01/2015) Hx Dementia: No Hx Diabetes: No Hx Gastrointestinal Disorders: No Hx Liver Disease: No Hx Genitourinary Disorders: No Hx Sexually Transmitted Disorders: No Hx Renal Disease (ESRD): No Hx Thyroid Disease: No Hx Human Immunodeficiency Virus (HIV): No Hx Hepatitis C: No Hx Depression: Yes Hx Suicide Attempt: Yes (pt was 16 when she tried to cut her wrist with a razor) Hx Bipolar Disorder: Yes Hx Schizophrenia: Yes (Pt is schizo-affective) - Patient Surgical History Past Surgical History: Yes Hx Neurologic Surgery: No Hx Cataract Extraction: No Hx Cardiac Surgery: No Hx Lung Surgery: No Hx Breast Surgery: No Hx Breast Biopsy: No Hx Abdominal Surgery: No Hx Appendectomy: No Hx Cholecystectomy: No Hx Section: Yes (x 4) Hx Orthopedic Surgery: No Other Surgical History: Bunion Surgery to both feet Anesthesia Reaction: No - PPD History Previous Implant?: Yes Date: 01/16/19 Results: negative - Reproductive History Last Menstrual Period: 05/18/13 Patient : No - Smoking Cessation Smoking history: Current every day smoker Have you smoked in the past 12 months: Yes Aproximately how many cigarettes per day: 10 Hx Chewing Tobacco Use: No Initiated information on smoking cessation: Yes 'Breaking Loose' booklet given: 09/26/19 - Substances abused Alcohol Substance route: Oral Frequency: Daily Amount used: 5 22oz of beer and a 1/2 gallon of vodka Age of first use: 10 Date of last use: 09/25/19 Crack Substance route: Smoking Frequency: Daily Amount used: 20 bags Age of first use: 16 Date of last use: 09/25/19 Marijuana/Hashish Substance route: Smoking Frequency: Daily Amount used: $20 Age of first use: 10 Date of last use: 09/25/19 Alprazolam (Xanax) Substance route: Oral Frequency: Daily Amount used: 5 pills Age of first use: 44 Date of last use: 09/25/19 Heroin Substance route: Inhalation Frequency: Daily Amount used: 10 bags Age of first use: 43 Date of last use: 09/24/19 Admission Physical Exam S - Vital Signs Vital Signs: Vital Signs - 24 hr 09/26/19 15:39 Temperature 99.1 F Pulse Rate 110 H Respiratory 18 Rate Blood Pressure 184/103 H - Physical General Appearance: Yes: Within Normal Limits, No Apparent Distress, Nourished HEENTM: Yes: Within Normal Limits, EOMI, Hearing grossly Normal, LITZY, Other ( dentures) Respiratory: Yes: Within Normal Limits, Chest Non-Tender Neck: Yes: Within Normal Limits, No masses,lesions,Nodules. No: Thyroid enlarged, Thyroid tenderness Cardiology: Yes: Regular Rhythm, Systolic Murmur (3/6 RUSB). 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 intact, Fully Oriented, Alert, Motor Strength 5/5, Normal Mood/Affect, Other (reflexes intact throughout ) Breathalyzer - Breathalyzer Breathalyzer: 0 Urine Drug Screen - Test Device Lot number: [id number] Expiration date: 03/09/21 - Control Is test valid?: Yes - Results Drug screen NEGATIVE: No Urine drug screen results: THC-Marijuana, MARTHA-Cocaine Inpatient Rehab Admission - Rehab Decision to Admit Inpatient rehab admission?: No <Jayson De Paz - Last Filed: 09/28/19 08:21> CIWA Score - Admission Criteria OASAS Guidelines: Admission for Medically Managed Detox: Requires at least one of the followin. CIWA greater than 12 2. Seizures within the past 24 hours 3. Delirium tremens within the past 24 hours 4. Hallucinations within the past 24 hours 5. Acute intervention needed for co occurring medical disorder 6. Acute intervention needed for co occurring psychiatric disorder 7. Severe withdrawal that cannot be handled at a lower level of care (continued vomiting, continued diarrhea, abnormal vital signs) requiring intravenous medication and/or fluids 8. Admission Physical Exam [facility] - Vital Signs Vital Signs: Vital Signs - 24 hr 09/27/19 09/27/19 09/27/19 09:19 13:09 16:54 Temperature 98.4 F 98.2 F 97.1 F L Pulse Rate 98 H 88 67 Respiratory 19 20 16 Rate Blood Pressure 142/90 146/87 146/69 09/27/19 09/28/19 09/28/19 20:45 00:55 03:46 Temperature 98.2 F Pulse Rate 87 Respiratory 18 18 18 Rate Blood Pressure 118/73 - Physical General Appearance: Yes: Within Normal Limits, No Apparent Distress, Nourished HEENTM: Yes: Within Normal Limits, EOMI, Hearing grossly Normal, LITZY, Other Respiratory: Yes: Within Normal Limits, Chest Non-Tender Neck: Yes: Within Normal Limits, No masses,lesions,Nodules. No: Thyroid enlarged, Thyroid tenderness Breast: Yes: Breast Exam Deferred Cardiology: Yes: Regular Rhythm, Systolic Murmur. 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
[2019-09-26] MEDS ORDERED: MAGNESIUM HYDROX 2400MG/30ML ORAL SUSPENSION 30 ML CUP PO PRN (17:23)
[2019-09-26] MEDS ORDERED: BISMUTH SUBSALICYLATE 524 MG/30 ML UD PO PRN (17:23)
[2019-09-26] MEDS ORDERED: MAG HYDROX/AL HYDROX/SIMETH 30 ML UNIT-DOSE CUP PO PRN (17:23)
[2019-09-26] MEDS ORDERED: hydrOXYzine PAMOATE 25 MG CAPSULE (FP) PO PRN (17:23)
[2019-09-26] MEDS ORDERED: MENTHOL/PHENOL 1 EACH UD MM PRN (17:23)
[2019-09-26] MEDS ORDERED: ACETAMINOPHEN 325 MG TABLET (FP) PO PRN ×2 (17:23)
[2019-09-26] MEDS ORDERED: METHOCARBAMOL 500 MG TABLET PO PRN (17:23)
[2019-09-26] MEDS ORDERED: chlordiazePOXIDE HCL 25 MG CAPSULE PO PRN (17:23)
[2019-09-26] MEDS ORDERED: MAGNESIUM CITRATE 300 ML BOTTLE PO PRN (17:23)
[2019-09-26] MEDS: cloNIDine HCL 0.1 MG TABLET PO SCH (21:38)
[2019-09-26] MEDS: THIAMINE HCL 100 MG TABLET (FP) PO SCH (21:39)
[2019-09-26] MEDS: chlordiazePOXIDE HCL 25 MG CAPSULE PO SCH (22:28)
[2019-09-27] MEDS: chlordiazePOXIDE HCL 25 MG CAPSULE PO SCH ×4 (07:46→22:17)
[2019-09-27] MEDS: PHENYTOIN NA EXTENDED 100 MG CAPSULE (FP) PO SCH (07:48)
[2019-09-27 10:32] LABS: HEMATOCRIT 36.6 % (32.4-45.2); HEMOGLOBIN 12.1 GM/dL (10.7-15.3); MCH 29.6 pg (25.7-33.7); MCHC 33.2 g/dl (32.0-36.0); MEAN CELL VOLUME 89.2 fl (80-96); MEAN PLT VOLUME 10.2 fl (7.5-11.1); PLATELET COUNT 230 K/MM3 (134-434); RDW 14.4 % (11.6-15.6); WHITE BLOOD COUNT 7.4 K/mm3 (4.0-10.0)
[2019-09-27 10:33] LABS: ALBUMIN 3.3 g/dl (3.4-5.0); BILIRUBIN,TOTAL 0.5 mg/dL (0.2-1); BLOOD UREA NITROGEN 12.5 mg/dL (7-18); CALCIUM 8.6 mg/dL (8.5-10.1); CREATININE 0.8 mg/dL (0.55-1.3); POTASSIUM 3.6 mmol/L (3.5-5.1); TOT PROT 6.4 g/dl (6.4-8.2)
--- NOTE | 2019-09-27 10:45 | EKG ---
Test Reason : Blood Pressure : / mmHG Vent. Rate : 102 BPM Atrial Rate : 102 BPM P-R Int : 140 ms QRS Dur : 080 ms QT Int : 374 ms P-R-T Axes : 058 070 041 degrees QTc Int : 487 ms SINUS TACHYCARDIA MINIMAL VOLTAGE CRITERIA FOR LVH, MAY BE NORMAL VARIANT NONSPECIFIC T WAVE ABNORMALITY ABNORMAL ECG WHEN COMPARED WITH ECG OF 15-JAN-2019 06:49, NONSPECIFIC T WAVE ABNORMALITY, WORSE IN ANTERIOR LEADS NONSPECIFIC T WAVE ABNORMALITY, IMPROVED IN LATERAL LEADS Confirmed by Anjel Chopra MD ([id number]) on 09/27/2019 10:44:44 AM Referred By: Confirmed By:Anjel Chopra MD
[2019-09-27] MEDS: HYDROCHLOROTHIAZIDE 25 MG TABLET (FP) PO SCH (10:49)
[2019-09-27] MEDS: cloNIDine HCL 0.1 MG TABLET PO SCH ×2 (10:50→22:16)
[2019-09-27] MEDS: PRENATAL VITAMINS W/ FOLIC ACID TABLET (FP) PO SCH (10:55)
[2019-09-27] MEDS: NICOTINE 21 MG/24 HOURS TOPICAL PATCH TD SCH (10:55)
--- NOTE | 2019-09-27 10:55 | PN ---
[facility] CIWA - CIWA Score Nausea/Vomitin-No Nausea/No Vomiting Muscle Tremors: 3 Anxiety: 3 Agitation: 3 Paroxysmal Sweats: 3 Orientation: 0-Oriented Tacttile Disturbances: 0-None Auditory Disturbances: 0-None Visual Disturbances: 0-None Headache: 0-None Present CIWA-Ar Total Score: 12 [facility] COWS - Scale Resting Pulse: 1= [place] 81-100 Sweatin= Chills/Flushing Restless Observation: 1= Difficult to Sit Still Pupil Size: 0= Normal to Room Light Bone or Joint Aches: 2= Severe Diffuse Aches Runny Nose/ Eye Tearin= Runny Nose/Eyes GI Upset > 30mins: 2= Nausea/Diarrhea Tremor Observation of Outstretched Hands: 2= Slight Tremor Visible Yawning Observation: 2= >3x During Session Anxiety or Irritability: 2=Irritable/Anxious Goose Flesh Skin: 0=Smooth Skin COWS Score: 15 S Progress Note (SOAP) Subjective: nausea sweats shakes body aches interrupted sleep Objective: 09/27/19 10:53 Vital Signs Temperature 98.4 F 09/27/19 07:03 Pulse Rate 85 09/27/19 07:03 Respiratory Rate 18 09/27/19 07:03 Blood Pressure 120/79 09/27/19 07:03 O2 Sat by Pulse Oximetry (%) Laboratory Tests 09/26/19 09/27/19 09/27/19 15:27 07:45 07:45 WBC 7.4 RBC 4.10 Hgb 12.1 Hct 36.6 MCV 89.2 MCH 29.6 MCHC 33.2 RDW 14.4 Plt Count 230 D MPV 10.2 D Sodium 142 Potassium 3.6 Chloride 110 H Carbon Dioxide 28 Anion Gap 4 L BUN 12.5 Creatinine 0.8 Est GFR (CKD-EPI)AfAm 102.47 Est GFR (CKD-EPI)NonAf 88.41 Random Glucose 123 H Calcium 8.6 Total Bilirubin 0.5 AST 11 L ALT 18 Alkaline Phosphatase 95 Total Protein 6.4 Albumin 3.3 L POC Urine HCG, Qual Negative aaox3 ambulating no acute distress Assessment: 09/27/19 11:09 withdrawals Plan: continue detox increase fluids zofran sl prn
[2019-09-27] MEDS ORDERED: ONDANSETRON *ODT* 4 MG TABLET SL PRN (11:10)
[2019-09-27] MEDS ORDERED: PNEUMOC 13-VAL CONJ-DIP CRM/PF 0.5 ML DISP.SYRIN IM ONE (12:00)
[2019-09-27] MEDS ORDERED: PNEUMOCOCCAL 23 VACCINE 0.5 ML VIAL IM ONE (12:00)
[2019-09-27] MEDS: THIAMINE HCL 100 MG TABLET (FP) PO SCH (22:16)
[2019-09-27] MEDS: MELATONIN 5 MG TABLETS PO PRN (22:19)
[2019-09-28] MEDS: chlordiazePOXIDE HCL 25 MG CAPSULE PO SCH ×4 (06:12→22:35)
[2019-09-28] MEDS: PHENYTOIN NA EXTENDED 100 MG CAPSULE (FP) PO SCH (06:12)
--- NOTE | 2019-09-28 08:23 | PN ---
Teaching Attending Note Name of Resident: Artemio Parsons ATTENDING PHYSICIAN STATEMENT I saw and evaluated the patient. I reviewed the resident's note and discussed the case with the resident. I agree with the resident's findings and plan as documented. SUBJECTIVE: Agree with subjective resident's findings OBJECTIVE: Agree with objective resident's findings ASSESSMENT AND PLAN: Agree with admission plans by resident.
[2019-09-28] MEDS: cloNIDine HCL 0.1 MG TABLET PO SCH ×2 (11:25→22:35)
[2019-09-28] MEDS: HYDROCHLOROTHIAZIDE 25 MG TABLET (FP) PO SCH (11:25)
[2019-09-28] MEDS: NICOTINE 21 MG/24 HOURS TOPICAL PATCH TD SCH (11:26)
[2019-09-28] MEDS: PRENATAL VITAMINS W/ FOLIC ACID TABLET (FP) PO SCH (11:26)
--- NOTE | 2019-09-28 15:56 | PN ---
S CIWA - CIWA Score Nausea/Vomitin Muscle Tremors: 2 Anxiety: 2 Agitation: 2 Paroxysmal Sweats: No Perspiration Orientation: 0-Oriented Tacttile Disturbances: 1-Very Mild Itch/Numbness Auditory Disturbances: 0-None Visual Disturbances: 0-None Headache: 1-Very Mild CIWA-Ar Total Score: 10 S Progress Note (SOAP) Subjective: alert,irritable,anxious,interrupted sleep,tremor,pain in the body and back Objective: 09/28/19 15:54 Vital Signs Temperature 98.2 F 09/28/19 13:34 Pulse Rate 82 09/28/19 13:34 Respiratory Rate 19 09/28/19 13:34 Blood Pressure 122/75 09/28/19 13:34 O2 Sat by Pulse Oximetry (%) Laboratory Last Values WBC 7.4 K/mm3 (4.0-10.0) 09/27/19 07:45 RBC 4.10 M/mm3 (3.60-5.2) 09/27/19 07:45 Hgb 12.1 GM/dL (10.7-15.3) 09/27/19 07:45 Hct 36.6 % (32.4-45.2) 09/27/19 07:45 MCV 89.2 fl (80-96) 09/27/19 07:45 MCH 29.6 pg (25.7-33.7) 09/27/19 07:45 MCHC 33.2 g/dl (32.0-36.0) 09/27/19 07:45 RDW 14.4 % (11.6-15.6) 09/27/19 07:45 Plt Count 230 K/MM3 (134-434) D 09/27/19 07:45 MPV 10.2 fl (7.5-11.1) D 09/27/19 07:45 Sodium 142 mmol/L (136-145) 09/27/19 07:45 Potassium 3.6 mmol/L (3.5-5.1) 09/27/19 07:45 Chloride 110 mmol/L (98-107) H 09/27/19 07:45 Carbon Dioxide 28 mmol/L (21-32) 09/27/19 07:45 Anion Gap 4 MMOL/L (8-16) L 09/27/19 07:45 BUN 12.5 mg/dL (7-18) 09/27/19 07:45 Creatinine 0.8 mg/dL (0.55-1.3) 09/27/19 07:45 Est GFR (CKD-EPI)AfAm 102.47 09/27/19 07:45 Est GFR (CKD-EPI)NonAf 88.41 09/27/19 07:45 Random Glucose 123 mg/dL (74-106) H 09/27/19 07:45 Calcium 8.6 mg/dL (8.5-10.1) 09/27/19 07:45 Total Bilirubin 0.5 mg/dL (0.2-1) 09/27/19 07:45 AST 11 U/L (15-37) L 09/27/19 07:45 ALT 18 U/L (13-61) 09/27/19 07:45 Alkaline Phosphatase 95 U/L (45-117) 09/27/19 07:45 Total Protein 6.4 g/dl (6.4-8.2) 09/27/19 07:45 Albumin 3.3 g/dl (3.4-5.0) L 09/27/19 07:45 POC Urine HCG, Qual Negative 09/26/19 15:27 Phenytoin <0.4 09/27/19 07:45 RPR Titer Nonreactive (NONREACTIVE) 09/27/19 07:45 HIV 1&2 Ag/Ab, 4th Gen Non reactive (Non Reactive) 09/27/19 10:00 HIV 1&2 Antibody Screen Cancelled 09/27/19 07:45 HIV P24 Antigen Cancelled 09/27/19 07:45 Assessment: 09/28/19 15:55 withdrawal symptom Plan: continue detox,dilantin 300 mgs po now,dilantin level in am,seizure precaution, repeat dilantin level in am,fasting glucose in am
[2019-09-28] MEDS ORDERED: PHENYTOIN NA EXTENDED 100 MG CAPSULE (FP) PO ONE (16:30)
[2019-09-28] MEDS: THIAMINE HCL 100 MG TABLET (FP) PO SCH (22:35)
[2019-09-28] MEDS: MELATONIN 5 MG TABLETS PO PRN (22:36)
[2019-09-29] MEDS ORDERED: chlordiazePOXIDE HCL 10 MG CAPSULE PO PRN
[2019-09-29] MEDS: chlordiazePOXIDE HCL 10 MG CAPSULE PO SCH ×4 (06:08→23:33)
[2019-09-29] MEDS: PHENYTOIN NA EXTENDED 100 MG CAPSULE (FP) PO SCH (06:08)
[2019-09-29] MEDS: cloNIDine HCL 0.1 MG TABLET PO SCH ×2 (10:12→21:55)
[2019-09-29] MEDS: NICOTINE 21 MG/24 HOURS TOPICAL PATCH TD SCH (10:12)
[2019-09-29] MEDS: HYDROCHLOROTHIAZIDE 25 MG TABLET (FP) PO SCH (10:12)
[2019-09-29] MEDS: PRENATAL VITAMINS W/ FOLIC ACID TABLET (FP) PO SCH (10:13)
--- NOTE | 2019-09-29 13:28 | PN ---
[facility] CIWA - CIWA Score Nausea/Vomitin-Mild Nausea/No Vomiting Muscle Tremors: 1-None Visible, but [place] Anxiety: 1-Mildly Anxious Agitation: 1-Slight > Activity Paroxysmal Sweats: No Perspiration Orientation: 0-Oriented Tacttile Disturbances: 1-Very Mild Itch/Numbness Auditory Disturbances: 0-None Visual Disturbances: 0-None Headache: 1-Very Mild CIWA-Ar Total Score: 6 [facility] Progress Note (SOAP) Subjective: alert,irritable,anxious,interrupted sleep Objective: 09/29/19 13:25 alert,irritable,anxious,interrupted sleep 09/29/19 13:26 Vital Signs Temperature 99.0 F 09/29/19 08:52 Pulse Rate 18 L 09/29/19 08:52 Respiratory Rate 89 H 09/29/19 08:52 Blood Pressure 121/80 09/29/19 08:52 O2 Sat by Pulse Oximetry (%) 09/29/19 13:26 Laboratory Results - last 24 hr 09/29/19 07:25 Phenytoin 2.2 Assessment: 09/29/19 13:27 withdrawal symptom Plan: continue detox librium regimen,dilantin 300 mgs po now then daily,repeat dilantin level in am,fasting glucose in am,discharge in am
[2019-09-29] MEDS ORDERED: PHENYTOIN NA EXTENDED 100 MG CAPSULE (FP) PO ONE (13:50)
[2019-09-29] MEDS: THIAMINE HCL 100 MG TABLET (FP) PO SCH (21:56)
[2019-09-29] MEDS: MELATONIN 5 MG TABLETS PO PRN (21:57)
[2019-09-30] MEDS: chlordiazePOXIDE HCL 10 MG CAPSULE PO SCH ×2 (06:11→17:22)
[2019-09-30] MEDS: PHENYTOIN NA EXTENDED 100 MG CAPSULE (FP) PO SCH (06:13)
[2019-09-30] MEDS: NICOTINE 21 MG/24 HOURS TOPICAL PATCH TD SCH (10:22)
[2019-09-30] MEDS: HYDROCHLOROTHIAZIDE 25 MG TABLET (FP) PO SCH (10:22)
[2019-09-30] MEDS: cloNIDine HCL 0.1 MG TABLET PO SCH ×2 (10:23→22:09)
[2019-09-30] MEDS: PRENATAL VITAMINS W/ FOLIC ACID TABLET (FP) PO SCH (10:23)
--- NOTE | 2019-09-30 12:32 | PN ---
S CIWA - CIWA Score Nausea/Vomitin-Mild Nausea/No Vomiting Muscle Tremors: 1-None Visible, but [place] Anxiety: 1-Mildly Anxious Agitation: 1-Slight > Activity Paroxysmal Sweats: No Perspiration Orientation: 0-Oriented Tacttile Disturbances: 0-None Auditory Disturbances: 0-None Visual Disturbances: 0-None Headache: 1-Very Mild CIWA-Ar Total Score: 5 S Progress Note (SOAP) Subjective: Admitted for AUD- would like to see today for bipolar meds O: Vital Signs - 24 hr 09/29/19 09/29/19 09/29/19 13:47 16:48 22:57 Temperature 100.4 F H 98.1 F 99.3 F Pulse Rate 87 95 H 90 Respiratory 18 17 17 Rate Blood Pressure 125/76 134/77 131/84 09/30/19 09/30/19 09/30/19 04:27 06:10 10:07 Temperature 97.5 F L 98.1 F Pulse Rate 80 88 Respiratory 18 18 17 Rate Blood Pressure 115/61 136/61 Laboratory Tests 09/26/19 09/27/19 09/27/19 15:27 07:45 07:45 WBC RBC Hgb Hct MCV MCH MCHC RDW Plt Count MPV Sodium Potassium Chloride Carbon Dioxide Anion Gap BUN Creatinine Est GFR (CKD-EPI)AfAm Est GFR (CKD-EPI)NonAf Random Glucose Calcium Total Bilirubin AST ALT Alkaline Phosphatase Total Protein Albumin POC Urine HCG, Qual Negative Phenytoin <0.4 RPR Titer HIV 1&2 Ag/Ab, 4th Gen HIV 1&2 Antibody Screen Cancelled HIV P24 Antigen Cancelled 09/27/19 09/27/19 09/27/19 07:45 07:45 07:45 WBC 7.4 RBC 4.10 Hgb 12.1 Hct 36.6 MCV 89.2 MCH 29.6 MCHC 33.2 RDW 14.4 Plt Count 230 D MPV 10.2 D Sodium 142 Potassium 3.6 Chloride 110 H Carbon Dioxide 28 Anion Gap 4 L BUN 12.5 Creatinine 0.8 Est GFR (CKD-EPI)AfAm 102.47 Est GFR (CKD-EPI)NonAf 88.41 Random Glucose 123 H Calcium 8.6 Total Bilirubin 0.5 AST 11 L ALT 18 Alkaline Phosphatase 95 Total Protein 6.4 Albumin 3.3 L POC Urine HCG, Qual Phenytoin RPR Titer Nonreactive HIV 1&2 Ag/Ab, 4th Gen HIV 1&2 Antibody Screen HIV P24 Antigen 09/27/19 09/29/19 09/30/19 10:00 07:25 07:00 WBC RBC Hgb Hct MCV MCH MCHC RDW Plt Count MPV Sodium Potassium Chloride Carbon Dioxide Anion Gap BUN Creatinine Est GFR (CKD-EPI)AfAm Est GFR (CKD-EPI)NonAf Random Glucose Calcium Total Bilirubin AST ALT Alkaline Phosphatase Total Protein Albumin POC Urine HCG, Qual Phenytoin 2.2 3.1 RPR Titer HIV 1&2 Ag/Ab, 4th Gen Non reactive HIV 1&2 Antibody Screen HIV P24 Antigen a/p AUD- completing detox protocol tomorrow, to rehab MH consult today
[2019-09-30] MEDS: IBUPROFEN 400 MG TABLET (FP) PO PRN ×2 (13:36→22:10)
[2019-09-30] MEDS: THIAMINE HCL 100 MG TABLET (FP) PO SCH (22:09)
[2019-09-30] MEDS: MELATONIN 5 MG TABLETS PO PRN (22:09)
[2019-10-01] MEDS ORDERED: chlordiazePOXIDE HCL 10 MG CAPSULE PO ONE (05:00)
[2019-10-01] MEDS: PHENYTOIN NA EXTENDED 100 MG CAPSULE (FP) PO SCH (07:10)
[2019-10-01] MEDS: HYDROCHLOROTHIAZIDE 25 MG TABLET (FP) PO SCH (10:38)
[2019-10-01] MEDS: PRENATAL VITAMINS W/ FOLIC ACID TABLET (FP) PO SCH (10:38)
[2019-10-01] MEDS: cloNIDine HCL 0.1 MG TABLET PO SCH (10:39)
[2019-10-01] MEDS: NICOTINE 21 MG/24 HOURS TOPICAL PATCH TD SCH (10:39)
[2019-10-01 11:49] VITALS: BP 152/71; PULSE 94; TEMP 98.4
--- NOTE | 2019-10-01 13:47 | DS ---
[facility] Detox Discharge Summary Admission Date: 09/26/19 Discharge Date: 10/01/19 - History Present History: Alcohol Dependence - Physical Exam Results Vital Signs: Vital Signs Temperature 98.4 F 10/01/19 11:48 Pulse Rate 94 H 10/01/19 11:48 Respiratory Rate 16 10/01/19 11:48 Blood Pressure 152/71 10/01/19 11:48 O2 Sat by Pulse Oximetry (%) Laboratory Tests 09/26/19 09/27/19 09/27/19 15:27 07:45 07:45 WBC RBC Hgb Hct MCV MCH MCHC RDW Plt Count MPV Sodium Potassium Chloride Carbon Dioxide Anion Gap BUN Creatinine Est GFR (CKD-EPI)AfAm Est GFR (CKD-EPI)NonAf Random Glucose Fasting Glucose Calcium Total Bilirubin AST ALT Alkaline Phosphatase Total Protein Albumin POC Urine HCG, Qual Negative Phenytoin <0.4 RPR Titer HIV 1&2 Ag/Ab, 4th Gen HIV 1&2 Antibody Screen Cancelled HIV P24 Antigen Cancelled 09/27/19 09/27/19 09/27/19 07:45 07:45 07:45 WBC 7.4 RBC 4.10 Hgb 12.1 Hct 36.6 MCV 89.2 MCH 29.6 MCHC 33.2 RDW 14.4 Plt Count 230 D MPV 10.2 D Sodium 142 Potassium 3.6 Chloride 110 H Carbon Dioxide 28 Anion Gap 4 L BUN 12.5 Creatinine 0.8 Est GFR (CKD-EPI)AfAm 102.47 Est GFR (CKD-EPI)NonAf 88.41 Random Glucose 123 H Fasting Glucose Calcium 8.6 Total Bilirubin 0.5 AST 11 L ALT 18 Alkaline Phosphatase 95 Total Protein 6.4 Albumin 3.3 L POC Urine HCG, Qual Phenytoin RPR Titer Nonreactive HIV 1&2 Ag/Ab, 4th Gen HIV 1&2 Antibody Screen HIV P24 Antigen 09/27/19 09/29/19 09/30/19 10:00 07:25 07:00 WBC RBC Hgb Hct MCV MCH MCHC RDW Plt Count MPV Sodium Potassium Chloride Carbon Dioxide Anion Gap BUN Creatinine Est GFR (CKD-EPI)AfAm Est GFR (CKD-EPI)NonAf Random Glucose Fasting Glucose Calcium Total Bilirubin AST ALT Alkaline Phosphatase Total Protein Albumin POC Urine HCG, Qual Phenytoin 2.2 3.1 RPR Titer HIV 1&2 Ag/Ab, 4th Gen Non reactive HIV 1&2 Antibody Screen HIV P24 Antigen 10/01/19 07:25 WBC RBC Hgb Hct MCV MCH MCHC RDW Plt Count MPV Sodium Potassium Chloride Carbon Dioxide Anion Gap BUN Creatinine Est GFR (CKD-EPI)AfAm Est GFR (CKD-EPI)NonAf Random Glucose Fasting Glucose 143 H Calcium Total Bilirubin AST ALT Alkaline Phosphatase Total Protein Albumin POC Urine HCG, Qual Phenytoin RPR Titer HIV 1&2 Ag/Ab, 4th Gen HIV 1&2 Antibody Screen HIV P24 Antigen ROS: denies shakes, sweats and alcohol cravings PE alert and oriented x 3 skin warm and dry in nad +perrla, eoms intact bl ext no tremors amb ad corby denies si/hi ETOH dependence stable for discharge - Treatment Hospital Course: Detox Protocol Followed, Detoxed Safely, Responded well, Discharged Condition Good - Medication Discharge Medications: Ambulatory Orders Hydrochlorothiazide [Hctz -] 25 mg PO DAILY #14 tablet 01/31/19 Phenytoin Na Extended [Dilantin -] 300 mg PO DAILY #20 capsule 01/31/19 Clonidine HCl 0.3 mg PO BID 09/26/19 Quetiapine Fumarate [Seroquel -] 200 mg PO HS 09/26/19 - AMA Did Patient Leave Against Medical Advice: No
== END 2019-10-01 13:01 | disposition home or self-care (01) | DRG 773 ==
LOC: YASAS 13:07 → Y6N 18:41
PROVIDERS: ADMIT Allergy & Immunology; ATTEND Allergy & Immunology
PROC: HZ2ZZZZ Detoxification Services for Substance Abuse Treatment (ICD-10-PCS; principal; 2019-09-26)
DX: F10.230 Alcohol dependence with withdrawal, uncomplicated (principal); F11.23 Opioid dependence with withdrawal; F13.230 Sedative, hypnotic or anxiolytic dependence with withdrawal, uncomplicated; F14.20 Cocaine dependence, uncomplicated; F12.20 Cannabis dependence, uncomplicated; F17.210 Nicotine dependence, cigarettes, uncomplicated; F25.9 Schizoaffective disorder, unspecified; F31.9 Bipolar disorder, unspecified; I10 Essential (primary) hypertension; G40.909 Epilepsy, unspecified, not intractable, without status epilepticus; Z72.51 High risk heterosexual behavior; Z91.011 Allergy to milk products; Z91.018 Allergy to other foods; Z91.5 Personal history of self-harm
CPT/HCPCS: 36415; 80053; 80185; 81025; 82947; 85027; 86593; 87389; 93005; 93010; J0735

== ENCOUNTER 2021-06-09 14:40 | Inpatient (IN) | payer OTHER ==
[2021-06-09] MEDS ORDERED: ONDANSETRON *ODT* 4 MG TABLET SL PRN (17:01)
[2021-06-09] MEDS ORDERED: MAGNESIUM HYDROX 2400MG/30ML ORAL SUSPENSION 30 ML CUP PO PRN (17:01)
[2021-06-09] MEDS ORDERED: MENTHOL/PHENOL 1 EACH UD MM PRN (17:01)
[2021-06-09] MEDS ORDERED: ACETAMINOPHEN 325 MG TABLET (FP) PO PRN ×2 (17:01)
[2021-06-09] MEDS ORDERED: METHOCARBAMOL 500 MG TABLET PO PRN (17:01)
[2021-06-09] MEDS ORDERED: MAGNESIUM CITRATE 300 ML BOTTLE PO PRN (17:01)
[2021-06-09] MEDS ORDERED: IBUPROFEN 400 MG TABLET (FP) PO PRN (17:01)
[2021-06-09] MEDS ORDERED: hydrOXYzine PAMOATE 25 MG CAPSULE (FP) PO PRN (17:01)
[2021-06-09] MEDS ORDERED: MAG HYDROX/AL HYDROX/SIMETH 30 ML UNIT-DOSE CUP PO PRN (17:01)
[2021-06-09 17:03] VITALS: BMI 18.3
[2021-06-09] MEDS: diazePAM 5 MG TABLET PO SCH ×2 (21:10→23:03)
[2021-06-09] MEDS: cloNIDine HCL 0.1 MG TABLET PO SCH (21:23)
[2021-06-09] MEDS: diazePAM 5 MG TABLET PO PRN (21:23)
[2021-06-09] MEDS: PHENYTOIN NA EXTENDED 100 MG CAPSULE (FP) PO SCH (21:23)
[2021-06-09] MEDS: THIAMINE HCL 100 MG TABLET (FP) PO SCH (21:24)
[2021-06-09] MEDS ORDERED: MELATONIN 5 MG TABLETS PO SCH (22:00)
[2021-06-10] MEDS: diazePAM 5 MG TABLET PO SCH ×4 (05:50→22:32)
[2021-06-10] MEDS: PHENYTOIN NA EXTENDED 100 MG CAPSULE (FP) PO SCH (10:56)
[2021-06-10] MEDS: cloNIDine HCL 0.1 MG TABLET PO SCH ×2 (10:57→22:31)
[2021-06-10] MEDS: PRENATAL VITAMINS W/ FOLIC ACID TABLET (FP) PO SCH (10:57)
[2021-06-10] MEDS: NICOTINE 7 MG/24 HOURS TOPICAL PATCH TD SCH (10:57)
[2021-06-10] MEDS: HYDROCHLOROTHIAZIDE 25 MG TABLET (FP) PO SCH (13:14)
[2021-06-10] MEDS ORDERED: QUEtiapine FUMARATE 50 MG TABLET PO SCH (22:00)
[2021-06-10] MEDS: BENZTROPINE MESYLATE 1 MG TABLET PO SCH (22:31)
[2021-06-10] MEDS: QUEtiapine FUMARATE 100 MG TABLET (FP) PO SCH (22:32)
[2021-06-10] MEDS: THIAMINE HCL 100 MG TABLET (FP) PO SCH (22:32)
[2021-06-11] MEDS: diazePAM 5 MG TABLET PO SCH ×3 (07:01→23:13)
[2021-06-11] MEDS: BENZTROPINE MESYLATE 1 MG TABLET PO SCH ×2 (10:12→23:13)
[2021-06-11] MEDS: PHENYTOIN NA EXTENDED 100 MG CAPSULE (FP) PO SCH (10:12)
[2021-06-11] MEDS: PRENATAL VITAMINS W/ FOLIC ACID TABLET (FP) PO SCH (10:12)
[2021-06-11] MEDS: cloNIDine HCL 0.1 MG TABLET PO SCH ×2 (10:12→23:13)
[2021-06-11] MEDS: HYDROCHLOROTHIAZIDE 25 MG TABLET (FP) PO SCH (10:13)
[2021-06-11] MEDS: diazePAM 5 MG TABLET PO PRN (10:13)
[2021-06-11] MEDS: NICOTINE 7 MG/24 HOURS TOPICAL PATCH TD SCH (10:13)
[2021-06-11 10:52] LABS: HEMATOCRIT 39.7 % (32.4-45.2); HEMOGLOBIN 13.3 GM/dL (10.7-15.3); MCH 30.2 pg (25.7-33.7); MCHC 33.5 g/dl (32.0-36.0); MEAN PLT VOLUME 10.4 fl (7.5-11.1); PLATELET COUNT 251 10^3/uL (134-434); RBC 4.41 M/mm3 (3.60-5.2); RDW 14.8 % (11.6-15.6); WHITE BLOOD COUNT 6.3 K/mm3 (4.0-10.0)
[2021-06-11 10:55] LABS: EPI CELLS >36 /uL (0-25.1); HYALINE CASTS 8 /uL (0-3.1); URINE APPEARANCE CLOUDY; URINE BACTERIA 15 /uL (0-1359); URINE BILIRUBIN NEGATIVE (NEGATIVE); URINE COLOR YELLOW; URINE GLUCOSE (UA) NEGATIVE (NEGATIVE); URINE KETONE TRACE (NEGATIVE); URINE LEUK ESTERASE TRACE (NEGATIVE); URINE NITRITE NEGATIVE (NEGATIVE); URINE PROTEIN NEGATIVE (NEGATIVE); URINE RBC 12 /uL (0-23.9); URINE WBC 53 /uL (0-25.8)
[2021-06-11 10:57] LABS: ALBUMIN 3.5 g/dl (3.4-5.0); CALCIUM 9.4 mg/dL (8.5-10.1)
[2021-06-11 10:58] LABS: BLOOD UREA NITROGEN 12.5 mg/dL (7-18)
[2021-06-11 11:00] LABS: CREATININE 0.8 mg/dL (0.55-1.3)
[2021-06-11 11:02] LABS: BILIRUBIN,TOTAL 0.3 mg/dL (0.2-1)
[2021-06-11] MEDS ORDERED: PHENYTOIN NA EXTENDED 100 MG CAPSULE (FP) PO ONE (14:07)
[2021-06-11] MEDS: LISINOPRIL 5 MG TABLET PO SCH (15:21)
[2021-06-11] MEDS: BISMUTH SUBSALICYLATE 524 MG/30 ML PO PRN (21:23)
[2021-06-11] MEDS: QUEtiapine FUMARATE 100 MG TABLET (FP) PO SCH (23:14)
[2021-06-11] MEDS: THIAMINE HCL 100 MG TABLET (FP) PO SCH (23:14)
[2021-06-12] MEDS: diazePAM 5 MG TABLET PO SCH ×2 (06:14→17:21)
[2021-06-12] MEDS: cloNIDine HCL 0.1 MG TABLET PO SCH ×2 (10:17→22:19)
[2021-06-12] MEDS: PRENATAL VITAMINS W/ FOLIC ACID TABLET (FP) PO SCH (10:17)
[2021-06-12] MEDS: BENZTROPINE MESYLATE 1 MG TABLET PO SCH ×2 (10:18→22:19)
[2021-06-12] MEDS: PHENYTOIN NA EXTENDED 100 MG CAPSULE (FP) PO SCH (10:18)
[2021-06-12] MEDS: HYDROCHLOROTHIAZIDE 25 MG TABLET (FP) PO SCH (10:19)
[2021-06-12] MEDS: LISINOPRIL 5 MG TABLET PO SCH (10:19)
[2021-06-12] MEDS: NICOTINE 7 MG/24 HOURS TOPICAL PATCH TD SCH (10:21)
[2021-06-12] MEDS: THIAMINE HCL 100 MG TABLET (FP) PO SCH (22:19)
[2021-06-12] MEDS: QUEtiapine FUMARATE 100 MG TABLET (FP) PO SCH (22:19)
[2021-06-13] MEDS: BISMUTH SUBSALICYLATE 524 MG/30 ML PO PRN (05:16)
[2021-06-13] MEDS ORDERED: diazePAM 5 MG TABLET PO ONE (06:00)
[2021-06-13 06:24] VITALS: BP 140/102; PULSE 113; TEMP 96.9
== END 2021-06-13 09:16 | disposition home or self-care (01) | DRG 774 ==
LOC: YASAS 14:40 → Y6N 19:01
PROVIDERS: ADMIT Allergy & Immunology; ATTEND Allergy & Immunology
PROC: HZ2ZZZZ Detoxification Services for Substance Abuse Treatment (ICD-10-PCS; principal; 2021-06-09)
DX: F10.230 Alcohol dependence with withdrawal, uncomplicated (principal); F14.20 Cocaine dependence, uncomplicated; F12.20 Cannabis dependence, uncomplicated; F17.210 Nicotine dependence, cigarettes, uncomplicated; F25.9 Schizoaffective disorder, unspecified; F19.282 Other psychoactive substance dependence with psychoactive substance-induced sleep disorder; G40.909 Epilepsy, unspecified, not intractable, without status epilepticus; I10 Essential (primary) hypertension; Y63.6 Underdosing and nonadministration of necessary drug, medicament or biological substance; Z91.011 Allergy to milk products
CPT/HCPCS: 36415; 80053; 80185; 81003; 81025; 85027; 86780; C9803; J0735; U0003; U0005

== ENCOUNTER 2023-08-12 10:02 | Inpatient (IN) | payer OTHER ==
[2023-08-12 10:31] VITALS: BMI 20.8
[2023-08-12] MEDS ORDERED: ACETAMINOPHEN 325 MG TABLET (FP) PO PRN (11:16)
[2023-08-12] MEDS ORDERED: guaiFENesin 600 MG TABLET.ER (FP) PO PRN (11:16)
[2023-08-12] MEDS ORDERED: MAGNESIUM HYDROX 2400MG/30ML ORAL SUSPENSION 30 ML CUP PO PRN (11:16)
[2023-08-12] MEDS ORDERED: METHOCARBAMOL 500 MG TABLET PO PRN (11:16)
[2023-08-12] MEDS ORDERED: ONDANSETRON *ODT* 4 MG TABLET SL PRN (11:16)
[2023-08-12] MEDS ORDERED: LORazepam 1 MG TABLET PO PRN (11:16)
[2023-08-12] MEDS ORDERED: LOPERAMIDE HCL 2 MG CAPSULE PO PRN (11:16)
[2023-08-12] MEDS ORDERED: IBUPROFEN 600 MG TABLET (FP) PO PRN (11:16)
[2023-08-12] MEDS ORDERED: BENZONATATE 200 MG CAPSULE PO PRN (11:16)
[2023-08-12] MEDS ORDERED: POLYETHYLENE GLYCOL (HEALTHYLAX) 3350 17 GM PACKET PO PRN (11:16)
[2023-08-12] MEDS ORDERED: NALOXONE HCL (KLOXXADO) 8 MG SPRAY NS PRN (11:16)
[2023-08-12] MEDS ORDERED: DICYCLOMINE HCL 10 MG CAPSULE PO PRN (11:16)
[2023-08-12] MEDS ORDERED: BENZOCAINE/MENTHOL (CHLORASEPTIC ) LOZENGE MM PRN (11:16)
[2023-08-12] MEDS ORDERED: IBUPROFEN 400 MG TABLET (FP) PO PRN (11:16)
[2023-08-12] MEDS ORDERED: NALOXONE HCL 0.4 MG/ML VIAL IM PRN (11:16)
[2023-08-12] MEDS ORDERED: BISMUTH SUBSALICYLATE 262 MG/15 ML BTL PO PRN (11:16)
[2023-08-12] MEDS ORDERED: MAG HYDROX/AL HYDROX/SIMETH 30 ML UNIT-DOSE CUP PO PRN (11:16)
[2023-08-12] MEDS: LORazepam 2 MG TABLET PO SCH (11:30)
[2023-08-12] MEDS ORDERED: cloNIDine HCL 0.1 MG TABLET ONE ×2 (11:33→12:20)
[2023-08-12] MEDS ORDERED: LORazepam 1 MG TABLET ONE (11:33)
[2023-08-12] MEDS: cloNIDine HCL 0.1 MG TABLET PO ONE (11:44)
[2023-08-12 16:45] LABS: HIV INTERPRETATION NEGATIVE (NEGATIVE)
[2023-08-12] MEDS: hydrOXYzine PAMOATE 25 MG CAPSULE (FP) PO PRN (17:09)
[2023-08-12 18:03] VITALS: RESP 16
[2023-08-12 21:13] VITALS: PULSE 74
[2023-08-12] MEDS: MELATONIN 5 MG TABLETS PO SCH (22:59)
[2023-08-12] MEDS: THIAMINE HCL 100 MG TABLET (FP) PO SCH (22:59)
[2023-08-13 08:34] VITALS: BP 166/87; TEMP 98.6
[2023-08-13] MEDS ORDERED: PRENATAL VITAMINS W/ FOLIC ACID TABLET (FP) PO SCH (10:00)
[2023-08-13] MEDS ORDERED: NICOTINE 14 MG/24 HOURS TOPICAL PATCH TD SCH (10:00)
[2023-08-13] MEDS ORDERED: NICOTINE 21 MG/24 HOURS TOPICAL PATCH TD SCH (10:00)
[2023-08-13] MEDS ORDERED: cloNIDine HCL 0.1 MG TABLET PO SCH (10:00)
[2023-08-13] MEDS ORDERED: PHENYTOIN NA EXTENDED 100 MG CAPSULE (FP) PO SCH (10:00)
[2023-08-13 10:42] LABS: HEMATOCRIT 37.6 % (32.4-45.2); HEMOGLOBIN 12.2 GM/dL (10.7-15.3); MCH 28.6 pg (25.7-33.7); MCHC 32.4 g/dl (32.0-36.0); MEAN CELL VOLUME 88.4 fl (80-96); MEAN PLT VOLUME 10.9 fl (7.5-11.1); PLATELET COUNT 211 10^3/uL (134-434); RBC 4.26 M/mm3 (3.60-5.2); RDW 15.9 % (11.6-15.6); WHITE BLOOD COUNT 4.9 K/mm3 (4.0-10.0)
[2023-08-13 11:35] LABS: POTASSIUM 3.7 mmol/L (3.5-5.1)
[2023-08-13 11:38] LABS: ALBUMIN 3.4 g/dl (3.4-5.0); BLOOD UREA NITROGEN 16.1 mg/dL (7-18); CALCIUM 8.7 mg/dL (8.5-10.1)
[2023-08-13 11:42] LABS: CREATININE 0.9 mg/dL (0.55-1.3)
[2023-08-13 11:43] LABS: TOT PROT 7.6 g/dl (6.4-8.2)
[2023-08-13 11:44] LABS: BILIRUBIN,TOTAL 0.4 mg/dL (0.2-1)
[2023-08-13] MEDS ORDERED: QUEtiapine FUMARATE 50 MG TABLET PO SCH (22:00)
[2023-08-14] MEDS ORDERED: LORazepam 1 MG TABLET PO SCH (05:00)
[2023-08-15] MEDS ORDERED: LORazepam 0.5 MG TABLET PO PRN
[2023-08-15] MEDS ORDERED: LORazepam 0.5 MG TABLET PO SCH (05:00)
[2023-08-16] MEDS ORDERED: LORazepam 0.5 MG TABLET PO ONE (05:00)
== END 2023-08-13 09:51 | disposition left against medical advice (07) | DRG 770 ==
LOC: YASAS 10:02 → Y6N 11:29
PROVIDERS: ADMIT Allergy & Immunology; ATTEND Surgery
PROC: HZ2ZZZZ Detoxification Services for Substance Abuse Treatment (ICD-10-PCS; principal; 2023-08-12)
DX: F10.230 Alcohol dependence with withdrawal, uncomplicated (principal); F14.20 Cocaine dependence, uncomplicated; F12.20 Cannabis dependence, uncomplicated; F17.210 Nicotine dependence, cigarettes, uncomplicated; F19.282 Other psychoactive substance dependence with psychoactive substance-induced sleep disorder; F19.24 Other psychoactive substance dependence with psychoactive substance-induced mood disorder; F25.9 Schizoaffective disorder, unspecified; U07.1 COVID-19; G40.909 Epilepsy, unspecified, not intractable, without status epilepticus; I10 Essential (primary) hypertension
CPT/HCPCS: 36415; 80053; 80307; 81025; 85027; 86780; 87389; 87635